=== PATIENT | male | born 1945 | race Caucasian/White ===

== ENCOUNTER 2018-07-25 10:45 | Inpatient (IN) | payer MEDICARE, OTHER ==
[~2018-07-25] VITALS: Ht 180.3 cm; Wt 93.7 kg
[2018-07-25] VITALS (14 sets, daily range): BP systolic 105–162; BP diastolic 61–98
[2018-07-25] MEDS ORDERED: FLUT1AER INH (11:17)
[2018-07-25] MEDS ORDERED: SILO4CAP PO (11:17)
[2018-07-25] MEDS ORDERED: TADA5TAB2 PO (11:17)
[2018-07-25 11:18] LABS: BASOPHILS # (AUTO) 0.2 X10'3 (0-0.2); BASOPHILS % (AUTO) 1.6 % (0-1); EOSINOPHILS # (AUTO) 0.1 X10'3 (0-0.9); EOSINOPHILS % (AUTO) 0.4 % (0-6); HEMATOCRIT 49.5 % (42.0-52.0); LYMPHOCYTES # (AUTO) 1.4 X10'3 (1.1-4.8); LYMPHOCYTES % (AUTO) 9.3 % (21-51); MEAN CORPUSCULAR HEMOGLOBIN 30.2 PG (27.0-31.0); MEAN CORPUSCULAR HGB CONC 34.3 % (33.0-36.5); MEAN PLATELET VOLUME 8.1 FL (7.4-10.4); MONOCYTES # (AUTO) 0.6 X10'3 (0-0.9); MONOCYTES % (AUTO) 4.4 % (2-12); NEUTROPHILS # (AUTO) 12.3 X10'3 (1.8-7.7); NEUTROPHILS % (AUTO) 84.3 % (42-75); PLATELET COUNT 201 X10'3 (140-440); RED BLOOD COUNT 5.63 X10'6 (4.70-6.10); RED CELL DISTRIBUTION WIDTH 12.2 % (11.5-14.5); WHITE BLOOD COUNT 14.6 X10'3 (4.5-11.0)
[2018-07-25] MEDS ORDERED: ASPI-1265 PO (11:18)
[2018-07-25] MEDS ORDERED: ST JOHNS WORT PO (11:18)
[2018-07-25 11:25] LABS: PROTHROMBIN TIME 10.7 SECONDS (9.0-12.0)
[2018-07-25 11:39] LABS: ALANINE AMINOTRANSFERASE 26 U/L (12-78); ALBUMIN 3.8 G/DL (3.4-5.0); ALKALINE PHOSPHATASE 63 IU/L (46-116); ANION GAP 12 (8-16); ASPARTATE AMINO TRANSFERASE 17 U/L (10-37); BILIRUBIN,TOTAL 1.9 MG/DL (0.1-1.0); BLOOD UREA NITROGEN 24 MG/DL (7-18); BUN/CREATININE RATIO 18.3 (5.4-32.0); CHLORIDE 103 MMOL/L (99-107); CREATININE 1.31 MG/DL (0.60-1.10); GLUCOSE 109 MG/DL (70-104); LIPASE 133 U/L (73-393); POTASSIUM 3.7 MMOL/L (3.5-5.1); SODIUM 140 MMOL/L (135-145); TOTAL CARBON DIOXIDE 25.5 MMOL/L (24-32); TOTAL PROTEIN 7.7 G/DL (6.4-8.2); eGFR 53 ML/MIN
[2018-07-25] MEDS ORDERED: normal saline 1000ML IV soln IVB ONE (11:50)
[2018-07-25] MEDS ORDERED: iohexol 300mg/ml 100ml inj. ONE (11:52)
[2018-07-25 12:19] LABS: CLARITY,URINE CLEAR (Clear); COLOR,URINE YELLOW (Yellow); GLUCOSE, URINE NEGATIVE (Neg); KETONES,URINE NEGATIVE (Neg); LEUKOCYTE ESTERASE ,URINE TRACE (Neg); NITRITES, URINE NEGATIVE (Neg); OCCULT BLOOD,URINE MODERATE (Neg); PH,URINE 6.5 (4.8-8.0); PROTEIN,URINE NEGATIVE (Neg); UROBILINOGEN,URINE 0.2 E.U/dL (0.2-1.0)
[2018-07-25 12:27] LABS: UA COLLECTION TYPE URINAL
[2018-07-25 12:29] LABS: BACTERIA,URINE NONE SEEN /HPF (Neg); RBC,URINE 0-2 /HPF (0-2); WBC,URINE 0-4 /HPF (0-4)
[2018-07-25 12:30] LABS: HYALINE CASTS 0-3 /LPF (NEGATIVE); MUCUS STRANDS FEW /LPF (Neg); SQUAMOUS EPITHELIAL CELL,UR FEW /LPF (FEW)
[2018-07-25] MEDS ORDERED: piperacillin/tazo 3.375gm/50ml 50 ML IV ONE (13:15)
[2018-07-25] MEDS ORDERED: fentaNYL/PF 50MCG/1 ML 2ML syringe IV ONE (14:10)
[2018-07-25] MEDS ORDERED: mag hydrox/Alum hydrox/simeth 30ml oral suspension PO PRN (15:15)
[2018-07-25] MEDS ORDERED: acetaminophen 325mg tablet PO PRN ×2 (15:15)
[2018-07-25] MEDS ORDERED: magnesium hydroxide 30ml (MOM) UD suspension PO PRN (15:15)
[2018-07-25] MEDS ORDERED: magnesium 1gm/100ml D5W IVPB 100 ML IV PRN (15:15)
[2018-07-25] MEDS ORDERED: HYDROcodone/acetaminophen 10/325mg tab PO PRN (15:15)
[2018-07-25] MEDS ORDERED: magnesium 4gm in 100ml NS 100 ML IV PRN (15:15)
[2018-07-25] MEDS ORDERED: ondansetron/PF 4mg/2ml inj IV PRN ×2 (15:15→17:05)
[2018-07-25] MEDS ORDERED: magnesium Cl slow-release 64mg tablet PO PRN (15:15)
[2018-07-25] MEDS ORDERED: potassium Cl 20 mEq SR tablet PO PRN ×2 (15:15)
[2018-07-25] MEDS ORDERED: potassium Cl 40MEQ/NS 500ml 500 ML IV PRN ×2 (15:15)
[2018-07-25] MEDS ORDERED: HYDROcodone/acetaminophen 5mg/325mg tablet PO PRN ×3 (15:15→19:10)
[2018-07-25] MEDS ORDERED: HYDROmorphone 1 mg/ml syringe IV PRN ×3 (15:15→17:05)
[2018-07-25] MEDS: normal saline 1000ml 1,000 ML IV SCH (15:47)
[2018-07-25] MEDS ORDERED: piperacillin/tazo 3.375gm/50ml 50 ML IV SCH ×2 (16:00→19:10)
[2018-07-25] MEDS ORDERED: BUPIVAcaine/PF 2.5mg/ml (0.25%) 10ml vial ONE (16:39)
[2018-07-25] MEDS ORDERED: LIDOcaine 1% 30ml preserv. free vial ONE (16:39)
[2018-07-25] MEDS ORDERED: fentaNYL/PF 50MCG/1 ML 2ML syringe IV PRN ×2 (17:05)
[2018-07-25] MEDS ORDERED: ringers solution, lacted 1,000 ML IV SCH (17:05)
[2018-07-25] MEDS ORDERED: fentaNYL/PF 50MCG/1 ML 2ML syringe ONE ×2 (17:13→17:54)
[2018-07-25] MEDS ORDERED: neostigmine methylsulfate 1 MG/ML 10ml vial ONE (17:16)
[2018-07-25] MEDS ORDERED: sevoflurane 250ml liquid IH ONE (17:16)
[2018-07-25] MEDS ORDERED: dexamethasone sod phosphate 4mg/ml inj. ONE (17:54)
[2018-07-25] MEDS ORDERED: glycopyrrolate 0.2mg/ml inj ONE (17:54)
[2018-07-25] MEDS ORDERED: rocuronium 10mg/ml inj IV ONE (17:54)
[2018-07-25] MEDS ORDERED: propofol inj 20 ML IV ONE (17:54)
[2018-07-25] MEDS ORDERED: ondansetron/PF 4mg/2ml inj ONE (17:54)
[2018-07-25] MEDS ORDERED: LIDOcaine 2% (20mg/ml) 5ml vial ONE (17:54)
[2018-07-25] MEDS ORDERED: ePHEDrine 50MG/ML INJ. ONE (18:06)
[2018-07-25] MEDS ORDERED: labetalol 5mg/ml 20ml inj. IV ONE (18:33)
[2018-07-25] MEDS: piperacillin/tazo 3.375gm/50ml 50 ML IV SCH (19:28)
[2018-07-25] MEDS ORDERED: temazepam 15mg capsule PO PRN (21:00)
[2018-07-26] VITALS: BP 108/65
[2018-07-26] MEDS: piperacillin/tazo 3.375gm/50ml 50 ML IV SCH ×2 (01:29→12:00)
[2018-07-26] MEDS: normal saline 1000ml 1,000 ML IV SCH ×2 (03:34→11:14)
[2018-07-26 06:05] LABS: BASOPHILS % (AUTO) 0 % (0-1); EOSINOPHILS % (AUTO) 0 % (0-6); HEMATOCRIT 42.8 % (42.0-52.0); HEMOGLOBIN 14.6 g/dl (14.0-17.9); LYMPHOCYTES # (AUTO) 0.6 X10'3 (1.1-4.8); LYMPHOCYTES % (AUTO) 5.3 % (21-51); MEAN CORPUSCULAR HEMOGLOBIN 30.3 PG (27.0-31.0); MEAN CORPUSCULAR HGB CONC 34.2 % (33.0-36.5); MEAN CORPUSCULAR VOLUME 88.5 FL (78-98); MEAN PLATELET VOLUME 8.5 FL (7.4-10.4); MONOCYTES # (AUTO) 0.3 X10'3 (0-0.9); MONOCYTES % (AUTO) 2.5 % (2-12); NEUTROPHILS # (AUTO) 11.3 X10'3 (1.8-7.7); NEUTROPHILS % (AUTO) 92.2 % (42-75); PLATELET COUNT 174 X10'3 (140-440); RED BLOOD COUNT 4.84 X10'6 (4.70-6.10); RED CELL DISTRIBUTION WIDTH 12.8 % (11.5-14.5); WHITE BLOOD COUNT 12.2 X10'3 (4.5-11.0)
[2018-07-26 06:11] LABS: ALANINE AMINOTRANSFERASE 22 U/L (12-78); ALBUMIN 2.7 G/DL (3.4-5.0); ALBUMIN/GLOBULIN RATIO 0.8 (1.1-1.5); ALKALINE PHOSPHATASE 50 IU/L (46-116); ANION GAP 9 (8-16); BILIRUBIN,TOTAL 1.7 MG/DL (0.1-1.0); BLOOD UREA NITROGEN 24 MG/DL (7-18); BUN/CREATININE RATIO 16.1 (5.4-32.0); CALCIUM 7.9 MG/DL (8.5-10.1); CHLORIDE 105 MMOL/L (99-107); CREATININE 1.49 MG/DL (0.60-1.10); GLUCOSE 190 MG/DL (70-104); MAGNESIUM 1.8 MG/DL (1.5-2.4); SODIUM 139 MMOL/L (135-145); TOTAL CARBON DIOXIDE 24.6 MMOL/L (24-32); TOTAL PROTEIN 6.3 G/DL (6.4-8.2); eGFR 46 ML/MIN
[2018-07-26 06:43] LABS: ASPARTATE AMINO TRANSFERASE 20 U/L (10-37); POTASSIUM 4.5 MMOL/L (3.5-5.1)
[2018-07-26 07:41] VITALS: BP 123/69
[2018-07-26] MEDS ORDERED: aspirin 81mg tab.chew PO SCH (08:00)
[2018-07-26] MEDS ORDERED: K and/or MAG REPLACEMENT MC SCH (08:00)
[2018-07-26 12:00] VITALS: BP 110/62
== END 2018-07-26 13:11 | disposition home or self-care (01) | DRG 854 ==
LOC: ER 10:46 → ED HOLD 15:14 → SUR 3N 19:00
PROVIDERS: ADMIT Family Medicine; ATTEND Family Medicine
PROC: 0WQF0ZZ Repair Abdominal Wall, Open Approach (ICD-10-PCS; 2018-07-25)
PROC: BW211ZZ Computerized Tomography (CT Scan) of Abdomen and Pelvis using Low Osmolar Contrast (ICD-10-PCS; 2018-07-25)
PROC: 0DTJ4ZZ Resection of Appendix, Percutaneous Endoscopic Approach (ICD-10-PCS; principal; 2018-07-25 17:16)
DX: A41.9 Sepsis, unspecified organism (principal); K35.80 Unspecified acute appendicitis; R09.02 Hypoxemia; K42.9 Umbilical hernia without obstruction or gangrene; J44.9 Chronic obstructive pulmonary disease, unspecified; N18.9 Chronic kidney disease, unspecified; N40.0 Benign prostatic hyperplasia without lower urinary tract symptoms; Z88.5 Allergy status to narcotic agent; Z79.899 Other long term (current) drug therapy; Z79.82 Long term (current) use of aspirin; Z87.891 Personal history of nicotine dependence
CPT/HCPCS: 36415; 71045; 74177; 80053; 81001; 83690; 83735; 85025; 85610; 87070; 87088; 88304; 96365; 99285; A7000; J1100; J1170; J2001; J2405; J2543; J2704; J2710; J3010; J3490; J7030; J7120; Q9967

== ENCOUNTER 2018-08-13 11:46 | Inpatient (IN) | payer MEDICARE, OTHER ==
[~2018-08-13] VITALS: Ht 180.3 cm; Wt 92.2 kg
[~2018-08-13 11:46] MED LIST: ASPI-1265 PO; FLUT1AER INH; SILO4CAP PO; ST JOHNS WORT PO; TADA5TAB2 PO
[2018-08-13] MEDS ORDERED: enoxaparin 100mg/ml syringe SUBCUT ONE (12:00)
[2018-08-13] MEDS ORDERED: levoFLOXACIN-Levaquin 750MG/D5 150 ML IV ONE (12:15)
[2018-08-13] MEDS ORDERED: enoxaparin 60mg/0.6ml syringe SUBCUT ONE (12:15)
[2018-08-13] MEDS ORDERED: enoxaparin 30mg/0.3ml syringe SUBCUT ONE (12:15)
[2018-08-13 12:25] LABS: BASOPHILS % (AUTO) 0.6 % (0-1); EOSINOPHILS # (AUTO) 0.1 X10'3 (0-0.9); EOSINOPHILS % (AUTO) 1.6 % (0-6); HEMATOCRIT 47.8 % (42.0-52.0); LYMPHOCYTES # (AUTO) 1.2 X10'3 (1.1-4.8); LYMPHOCYTES % (AUTO) 14.7 % (21-51); MEAN CORPUSCULAR HEMOGLOBIN 29.4 PG (27.0-31.0); MEAN CORPUSCULAR HGB CONC 33.5 % (33.0-36.5); MEAN CORPUSCULAR VOLUME 87.7 FL (78-98); MEAN PLATELET VOLUME 7.5 FL (7.4-10.4); MONOCYTES # (AUTO) 0.8 X10'3 (0-0.9); MONOCYTES % (AUTO) 9.8 % (2-12); NEUTROPHILS # (AUTO) 5.8 X10'3 (1.8-7.7); NEUTROPHILS % (AUTO) 73.3 % (42-75); PLATELET COUNT 286 X10'3 (140-440); RED BLOOD COUNT 5.45 X10'6 (4.70-6.10); RED CELL DISTRIBUTION WIDTH 12.8 % (11.5-14.5); WHITE BLOOD COUNT 7.9 X10'3 (4.5-11.0)
[2018-08-13 13:02] LABS: ALANINE AMINOTRANSFERASE 38 U/L (12-78); ALBUMIN 3.1 G/DL (3.4-5.0); ALBUMIN/GLOBULIN RATIO 0.6 (1.1-1.5); ALKALINE PHOSPHATASE 76 IU/L (46-116); ANION GAP 15 (8-16); ASPARTATE AMINO TRANSFERASE 30 U/L (10-37); BILIRUBIN,TOTAL 0.9 MG/DL (0.1-1.0); BLOOD UREA NITROGEN 21 MG/DL (7-18); BUN/CREATININE RATIO 15.7 (5.4-32.0); CHLORIDE 99 MMOL/L (99-107); CREATININE 1.34 MG/DL (0.60-1.10); GLUCOSE 101 MG/DL (70-104); POTASSIUM 3.9 MMOL/L (3.5-5.1); SODIUM 137 MMOL/L (135-145); TOTAL CARBON DIOXIDE 23.4 MMOL/L (24-32); TOTAL PROTEIN 7.9 G/DL (6.4-8.2); eGFR 52 ML/MIN
[2018-08-13] MEDS: K and/or MAG REPLACEMENT MC SCH (14:50)
[2018-08-13] MEDS ORDERED: ondansetron/PF 4mg/2ml inj IV PRN (14:50)
[2018-08-13] MEDS ORDERED: ipratropium/albuterol 3ml nebule NEB PRN (14:50)
[2018-08-13] MEDS ORDERED: magnesium 1gm/100ml D5W IVPB 100 ML IV PRN (14:50)
[2018-08-13] MEDS ORDERED: potassium Cl 40MEQ/NS 500ml 500 ML IV PRN ×2 (14:50)
[2018-08-13] MEDS ORDERED: magnesium hydroxide 30ml (MOM) UD suspension PO PRN (14:50)
[2018-08-13] MEDS ORDERED: magnesium Cl slow-release 64mg tablet PO PRN (14:50)
[2018-08-13] MEDS ORDERED: acetaminophen 325mg tablet PO PRN ×2 (14:50)
[2018-08-13] MEDS ORDERED: mag hydrox/Alum hydrox/simeth 30ml oral suspension PO PRN (14:50)
[2018-08-13] MEDS ORDERED: diphenhydrAMINE 25mg capsule PO PRN (14:50)
[2018-08-13] MEDS ORDERED: potassium Cl 20 mEq SR tablet PO PRN ×2 (14:50)
[2018-08-13] MEDS ORDERED: magnesium 4gm in 100ml NS 100 ML IV PRN (14:50)
[2018-08-13 15:45] LABS: CLARITY,URINE SLIGHTLY CLOUDY (Clear); COLOR,URINE YELLOW (Yellow); GLUCOSE, URINE NEGATIVE (Neg); KETONES,URINE 15 mg/dl (Neg); LEUKOCYTE ESTERASE ,URINE NEGATIVE (Neg); NITRITES, URINE NEGATIVE (Neg); OCCULT BLOOD,URINE TRACE-INTACT (Neg); PROTEIN,URINE NEGATIVE (Neg); UROBILINOGEN,URINE 0.2 E.U/dL (0.2-1.0)
[2018-08-13 15:51] LABS: UA COLLECTION TYPE CLN CATCH MIDSTREAM
[2018-08-13 15:52] LABS: MUCUS STRANDS FEW /LPF (Neg); SQUAMOUS EPITHELIAL CELL,UR NONE SEEN /LPF (FEW)
[2018-08-13 15:54] LABS: RBC,URINE 0-2 /HPF (0-2)
[2018-08-13 15:55] LABS: BACTERIA,URINE FEW /HPF (Neg)
[2018-08-13 16:50] VITALS: BP 147/88
[2018-08-13] MEDS: normal saline 1000ml 1,000 ML IV SCH (17:03)
[2018-08-13] MEDS: enoxaparin 60mg/0.6ml syringe SUBCUT SCH (19:59)
[2018-08-13 20:00] VITALS: BP 129/79
[2018-08-13] MEDS: enoxaparin 30mg/0.3ml syringe SUBCUT SCH (20:00)
[2018-08-14] VITALS: BP 123/72
[2018-08-14] MEDS: normal saline 1000ml 1,000 ML IV SCH (01:28)
[2018-08-14 05:35] LABS: BASOPHILS % (AUTO) 0.7 % (0-1); EOSINOPHILS # (AUTO) 0.2 X10'3 (0-0.9); EOSINOPHILS % (AUTO) 3.2 % (0-6); HEMOGLOBIN 13.8 g/dl (14.0-17.9); LYMPHOCYTES # (AUTO) 1.2 X10'3 (1.1-4.8); LYMPHOCYTES % (AUTO) 20.3 % (21-51); MEAN CORPUSCULAR HEMOGLOBIN 29.5 PG (27.0-31.0); MEAN CORPUSCULAR HGB CONC 33.6 % (33.0-36.5); MEAN CORPUSCULAR VOLUME 87.7 FL (78-98); MEAN PLATELET VOLUME 7.9 FL (7.4-10.4); MONOCYTES # (AUTO) 0.7 X10'3 (0-0.9); MONOCYTES % (AUTO) 11.6 % (2-12); NEUTROPHILS # (AUTO) 3.8 X10'3 (1.8-7.7); NEUTROPHILS % (AUTO) 64.2 % (42-75); PLATELET COUNT 271 X10'3 (140-440); RED BLOOD COUNT 4.67 X10'6 (4.70-6.10); RED CELL DISTRIBUTION WIDTH 12.9 % (11.5-14.5); WHITE BLOOD COUNT 5.9 X10'3 (4.5-11.0)
[2018-08-14 05:54] LABS: ALANINE AMINOTRANSFERASE 30 U/L (12-78); ALBUMIN 2.5 G/DL (3.4-5.0); ALBUMIN/GLOBULIN RATIO 0.6 (1.1-1.5); ALKALINE PHOSPHATASE 61 IU/L (46-116); ANION GAP 9 (8-16); ASPARTATE AMINO TRANSFERASE 27 U/L (10-37); BILIRUBIN,TOTAL 0.4 MG/DL (0.1-1.0); BLOOD UREA NITROGEN 25 MG/DL (7-18); BUN/CREATININE RATIO 19.4 (5.4-32.0); CALCIUM 8.5 MG/DL (8.5-10.1); CHLORIDE 106 MMOL/L (99-107); CREATININE 1.29 MG/DL (0.60-1.10); GLUCOSE 102 MG/DL (70-104); MAGNESIUM 1.9 MG/DL (1.5-2.4); PHOSPHORUS 3.7 MG/DL (2.3-4.5); POTASSIUM 3.5 MMOL/L (3.5-5.1); SODIUM 140 MMOL/L (135-145); TOTAL CARBON DIOXIDE 25.2 MMOL/L (24-32); TOTAL PROTEIN 6.5 G/DL (6.4-8.2); eGFR 54 ML/MIN
[2018-08-14 07:00] VITALS: BP 124/68
[2018-08-14 07:05] VITALS: BP 124/68
[2018-08-14] MEDS ORDERED: levoFLOXACIN-Levaquin 750MG/D5 150 ML IV SCH (08:00)
[2018-08-14] MEDS: K and/or MAG REPLACEMENT MC SCH (08:00)
[2018-08-14] MEDS: enoxaparin 60mg/0.6ml syringe SUBCUT SCH (08:32)
[2018-08-14] MEDS: enoxaparin 30mg/0.3ml syringe SUBCUT SCH (08:33)
[2018-08-14 11:23] VITALS: BP 133/68
[2018-08-14] MEDS ORDERED: traMADol 50MG tablet PO PRN (13:10)
[2018-08-14] MEDS ORDERED: APIX5TAB3 PO (14:14)
[2018-08-14] MEDS ORDERED: LEVO750T46 PO (14:15)
[2018-08-14] MEDS ORDERED: ALBU8.5H8 IH (14:18)
[2018-08-14] MEDS ORDERED: lactobacillus rhamnosus 10,000 MMU CELLS/CAPSULE PO SCH (20:00)
== END 2018-08-14 15:26 | disposition home or self-care (01) | DRG 175 ==
LOC: ER 11:46 → ED HOLD 14:50 → SUR 3N 16:46
PROVIDERS: ADMIT Family Medicine; ATTEND Family Medicine
DX: I26.99 Other pulmonary embolism without acute cor pulmonale (principal); J18.1 Lobar pneumonia, unspecified organism; R04.2 Hemoptysis; J45.909 Unspecified asthma, uncomplicated; N18.9 Chronic kidney disease, unspecified; N40.0 Benign prostatic hyperplasia without lower urinary tract symptoms; Z90.49 Acquired absence of other specified parts of digestive tract; Z88.5 Allergy status to narcotic agent; Z79.899 Other long term (current) drug therapy; Z79.01 Long term (current) use of anticoagulants; Z80.3 Family history of malignant neoplasm of breast
CPT/HCPCS: 36415; 71045; 80053; 81001; 83605; 83735; 84100; 84145; 84484; 85025; 87040; 87070; 87088; 93005; 93306; 93970; 94760; 96372; 96374; 99285; G0378; J1650; J1956; J7030

== ENCOUNTER 2018-11-08 13:00 | Inpatient (IN) | payer MEDICARE, OTHER | END 2018-11-14 15:00 | disposition home or self-care (01) | LOC: MED 3N 13:00 → ICU 2S 11-10 10:17 → MED 3N 11-12 16:53 | PROC: 02100A3 Bypass Coronary Artery, One Artery from Coronary Artery with Autologous Arterial Tissue, Open Approach (ICD-10-PCS; principal; 2018-11-10 08:00) | PROC: 0211099 Bypass Coronary Artery, Two Arteries from Left Internal Mammary with Autologous Venous Tissue, Open Approach (ICD-10-PCS; 2018-11-10 08:00) | PROC: 5A1935Z Respiratory Ventilation, Less than 24 Consecutive Hours (ICD-10-PCS; 2018-11-10 08:00) | DX: I25.10 Atherosclerotic heart disease of native coronary artery without angina pectoris (principal); J44.9 Chronic obstructive pulmonary disease, unspecified; G47.36 Sleep related hypoventilation in conditions classified elsewhere ==

== ENCOUNTER 2021-03-17 19:15 | Emergency (ER) | payer MEDICARE, OTHER ==
[~2021-03-17] VITALS: Ht 180.3 cm; Wt 91.3 kg
[~2021-03-17 19:15] MED LIST changes: +ALBU8HFA IH; +AMLO5TAB16 PO; +APIX5TAB3 PO; -ASPI-1265 PO; -FLUT1AER INH; +FLUT1BLS3 INH; -SILO4CAP PO; +SILO8CAP2 PO; -ST JOHNS WORT PO; +TADA5TAB13 PO; -TADA5TAB2 PO
[2021-03-17 20:15] LABS: BASOPHILS # (AUTO) 0.1 X10'3 (0-0.2); BASOPHILS % (AUTO) 0.6 % (0-1); EOSINOPHILS # (AUTO) 0.1 X10'3 (0-0.9); EOSINOPHILS % (AUTO) 0.9 % (0-6); HEMATOCRIT 46.8 % (42.0-52.0); HEMOGLOBIN 16.1 g/dl (14.0-17.9); LYMPHOCYTES # (AUTO) 0.9 X10'3 (1.1-4.8); LYMPHOCYTES % (AUTO) 10.9 % (21-51); MEAN CORPUSCULAR HEMOGLOBIN 29.8 PG (27.0-31.0); MEAN CORPUSCULAR HGB CONC 34.3 g/dL (33.0-36.5); MEAN CORPUSCULAR VOLUME 86.9 FL (78-98); MEAN PLATELET VOLUME 7.4 FL (7.4-10.4); MONOCYTES # (AUTO) 0.5 X10'3 (0-0.9); MONOCYTES % (AUTO) 5.8 % (2-12); NEUTROPHILS # (AUTO) 6.6 X10'3 (1.8-7.7); NEUTROPHILS % (AUTO) 81.8 % (42-75); PLATELET COUNT 279 X10'3 (140-440); RED BLOOD COUNT 5.39 X10'6 (4.70-6.10)
[2021-03-17 20:31] LABS: ALANINE AMINOTRANSFERASE 22 U/L (12-78); ALBUMIN 3.5 G/DL (3.4-5.0); ALBUMIN/GLOBULIN RATIO 0.9 (1.1-1.5); ALKALINE PHOSPHATASE 67 IU/L (46-116); ANION GAP 12 (8-16); ASPARTATE AMINO TRANSFERASE 17 U/L (10-37); BILIRUBIN,TOTAL 0.4 MG/DL (0.1-1.0); BLOOD UREA NITROGEN 15 MG/DL (7-18); BUN/CREATININE RATIO 9.7 (5.4-32.0); CALCIUM 9.5 MG/DL (8.5-10.1); CHLORIDE 108 MMOL/L (99-107); CREATININE 1.55 MG/DL (0.60-1.10); GLUCOSE 127 MG/DL (70-104); LIPASE 82 U/L (73-393); POTASSIUM 3.9 MMOL/L (3.5-5.1); SODIUM 144 MMOL/L (135-145); TOTAL CARBON DIOXIDE 24.2 MMOL/L (24-32); TOTAL PROTEIN 7.5 G/DL (6.4-8.2); TROPONIN I < 0.04 NG/ML (0.0-0.05); eGFR 44 ML/MIN
[2021-03-17] MEDS ORDERED: ondansetron/PF 4mg/2ml inj IV ONE (23:05)
[2021-03-17] MEDS ORDERED: fentaNYL/PF 50MCG/1 ML 2ML syringe IV ONE (23:20)
[2021-03-17] MEDS ORDERED: iohexol 350MG/ML 100ml bottle IV ONE (23:35)
--- NOTE | 2021-03-18 00:02 | NUR ---
CT ARRIVED AND TOOK PATIENT TO CT. 0.5 ML OF FENTYNAL GIVEN. FOR PAIN 07/24 PT STATED HE DIDN'T WANT A BIG DOSE OF MEDICATION.
[2021-03-18] MEDS ORDERED: HYDR-3972 PO (02:12)
[2021-03-18 02:18] LABS: CLARITY,URINE CLEAR (Clear); COLOR,URINE YELLOW (Yellow); GLUCOSE, URINE NEGATIVE (Neg); KETONES,URINE NEGATIVE (Neg); LEUKOCYTE ESTERASE ,URINE NEGATIVE (Neg); NITRITES, URINE NEGATIVE (Neg); OCCULT BLOOD,URINE LARGE (Neg); PH,URINE 5.5 (4.8-8.0); PROTEIN,URINE NEGATIVE (Neg); UROBILINOGEN,URINE 0.2 E.U/dL (0.2-1.0)
[2021-03-18 02:19] LABS: UA COLLECTION TYPE URINAL
[2021-03-18 02:24] LABS: BACTERIA,URINE NONE SEEN /HPF (Neg); MUCUS STRANDS FEW /LPF (Neg); SQUAMOUS EPITHELIAL CELL,UR NONE SEEN /LPF (FEW); WBC,URINE 0-4 /HPF (0-4)
[2021-03-18 04:21] VITALS: BP 140/90
== END 2021-03-18 05:29 | disposition home or self-care (01) ==
LOC: ER 19:15
DX: R10.31 Right lower quadrant pain (principal); I25.10 Atherosclerotic heart disease of native coronary artery without angina pectoris; J45.909 Unspecified asthma, uncomplicated; N18.9 Chronic kidney disease, unspecified; Z87.01 Personal history of pneumonia (recurrent); Z86.711 Personal history of pulmonary embolism; Z90.89 Acquired absence of other organs; Z88.5 Allergy status to narcotic agent; Z79.899 Other long term (current) drug therapy
CPT/HCPCS: 36415; 71045; 71275; 74174; 80053; 81001; 83690; 83880; 84484; 85025; 93005; 96374; 96375; 99285; J2405; J3010; Q9967

== ENCOUNTER 2021-07-28 16:27 | Inpatient (IN) | payer MEDICARE, OTHER ==
[~2021-07-28] VITALS: Ht 180.3 cm; Wt 91.7 kg
[~2021-07-28 16:27] MED LIST changes: +TALC 4 GM VIAL ***intrapleural administration only IX ONE; +sterile Talc 2 GM powder vial ONE
[2021-07-28] MEDS ORDERED: dexamethasone 4mg tablet PO ONE (17:10)
[2021-07-28] MEDS ORDERED: DEXAMETHASONE 6 MG TABLET PO ONE (17:15)
[2021-07-28] MEDS ORDERED: iohexol 350MG/ML 100ml bottle IV ONE (17:19)
[2021-07-28 17:20] LABS: BASOPHILS % (AUTO) 0.1 % (0-1); EOSINOPHILS % (AUTO) 0 % (0-6); HEMATOCRIT 51.3 % (42.0-52.0); HEMOGLOBIN 17.4 g/dl (14.0-17.9); LYMPHOCYTES # (AUTO) 0.4 X10'3 (1.1-4.8); LYMPHOCYTES % (AUTO) 3.9 % (21-51); MEAN CORPUSCULAR HEMOGLOBIN 29.3 PG (27.0-31.0); MEAN CORPUSCULAR HGB CONC 33.9 g/dL (33.0-36.5); MEAN CORPUSCULAR VOLUME 86.5 FL (78-98); MEAN PLATELET VOLUME 8.2 FL (7.4-10.4); MONOCYTES # (AUTO) 0.4 X10'3 (0-0.9); NEUTROPHILS # (AUTO) 9.4 X10'3 (1.8-7.7); PLATELET COUNT 190 X10'3 (140-440); RED BLOOD COUNT 5.93 X10'6 (4.70-6.10); RED CELL DISTRIBUTION WIDTH 13.5 % (11.5-14.5); WHITE BLOOD COUNT 10.3 X10'3 (4.5-11.0)
[2021-07-28 17:35] LABS: ALANINE AMINOTRANSFERASE 67 U/L (12-78); ALBUMIN 3.3 G/DL (3.4-5.0); ALBUMIN/GLOBULIN RATIO 0.7 (1.1-1.5); ALKALINE PHOSPHATASE 52 IU/L (46-116); ANION GAP 13 (8-16); ASPARTATE AMINO TRANSFERASE 66 U/L (10-37); BILIRUBIN,TOTAL 0.9 MG/DL (0.1-1.0); BLOOD UREA NITROGEN 36 MG/DL (7-18); BUN/CREATININE RATIO 22.2 (5.4-32.0); CALCIUM 8.8 MG/DL (8.5-10.1); CHLORIDE 101 MMOL/L (99-107); CREATININE 1.62 MG/DL (0.60-1.10); GLUCOSE 147 MG/DL (70-104); POTASSIUM 3.9 MMOL/L (3.5-5.1); SODIUM 140 MMOL/L (135-145); TOTAL CARBON DIOXIDE 25.6 MMOL/L (24-32); TOTAL PROTEIN 8.1 G/DL (6.4-8.2); eGFR 42 ML/MIN
--- NOTE | 2021-07-28 18:48 | NUR ---
SBAR THE NIGHT NURSE TO PAGE RT FOR O2 FLOW CHANGES FROM NON REBREATHER TO SALTER O2 OR HIGH FLOW ALSO INFORMED THAT PT HAS COPD AND IS COVID POSITIVE.
[2021-07-28 18:56] LABS: C-REACTIVE PROTEIN 3.46 MG/DL (0.0-0.5); LACTATE DEHYDROGENASE 537 U/L (85-227)
[2021-07-28] MEDS ORDERED: midazolam 1 mg/ML 2ml injection IV ONE (19:10)
[2021-07-28] MEDS ORDERED: fentaNYL/PF 50MCG/1 ML 2ML syringe ONE (19:19)
[2021-07-28] MEDS ORDERED: fentaNYL/PF 50MCG/1 ML 2ML syringe IV ONE (19:20)
--- NOTE | 2021-07-28 19:31 | NUR ---
Time out at 1930, Dr. Hunter
--- NOTE | 2021-07-28 19:33 | NUR ---
Thoravent inserted by Dr. Hunter first attempt. Chest xray single view will be ordered per verbal from Dr. Hunter.
[2021-07-28] MEDS ORDERED: REMDESIVIR INJ 200 MG in normal saline 100ml IV soln 60 ML IV ONE (20:00)
[2021-07-28] MEDS ORDERED: ondansetron/PF 4mg/2ml inj IV PRN (20:25)
[2021-07-28] MEDS ORDERED: potassium Cl 20 mEq SR tablet PO PRN ×2 (20:25)
[2021-07-28] MEDS ORDERED: magnesium hydroxide 30ml (MOM) UD suspension PO PRN (20:25)
[2021-07-28] MEDS ORDERED: acetaminophen 325mg tablet PO PRN (20:25)
[2021-07-28] MEDS ORDERED: potassium Cl 40MEQ/1/2NS 520ml 520 ML IV PRN ×2 (20:25)
[2021-07-28] MEDS ORDERED: HYDROcodone/acetaminophen 5mg/325mg tablet PO PRN (20:25)
[2021-07-28] MEDS ORDERED: mag hydrox/Alum hydrox/simeth 30ml oral suspension PO PRN (20:25)
[2021-07-28] MEDS ORDERED: APIX5TAB3 PO (20:38)
[2021-07-28] MEDS ORDERED: REMDESIVIR 100 MG in NS 100ml IVPB IV SCH (21:00)
[2021-07-28 22:00] VITALS: BP 118/77
[2021-07-28] MEDS: metoprolol tartrate 12.5mg (1/2 tablet) PO SCH (22:37)
--- NOTE | 2021-07-28 23:00 | NUR ---
report recieved from ER - per RN the thoravent dose not have to be connected to suction. tubing connected to thoravent is clamped off. pt c/o pain only at insertion point. sats stable at 95% on 15L NRB
[2021-07-29] MEDS: apixaban 5mg tablet PO SCH ×3 (01:10→19:52)
[2021-07-29 02:00] VITALS: BP 106/73
--- NOTE | 2021-07-29 04:00 | NUR ---
desat - placed NRB mask w/o oxygen and sats came up to 99% on 15L HF. see note. pt had another small black tarry stool. Addendum: 07/29/21 at 0401 by Stanley Rivas RN omit - wrong patient
--- NOTE | 2021-07-29 04:02 | NUR ---
stood to void. sats stable, resting w/o distress
[2021-07-29 06:07] LABS: BASOPHILS % (AUTO) 0 % (0-1); EOSINOPHILS % (AUTO) 0 % (0-6); HEMATOCRIT 42.8 % (42.0-52.0); HEMOGLOBIN 15.1 g/dl (14.0-17.9); LYMPHOCYTES # (AUTO) 0.4 X10'3 (1.1-4.8); LYMPHOCYTES % (AUTO) 5.1 % (21-51); MEAN CORPUSCULAR HEMOGLOBIN 29.7 PG (27.0-31.0); MEAN CORPUSCULAR HGB CONC 35.2 g/dL (33.0-36.5); MEAN CORPUSCULAR VOLUME 84.4 FL (78-98); MEAN PLATELET VOLUME 8.3 FL (7.4-10.4); MONOCYTES # (AUTO) 0.3 X10'3 (0-0.9); MONOCYTES % (AUTO) 3.5 % (2-12); NEUTROPHILS # (AUTO) 7.3 X10'3 (1.8-7.7); NEUTROPHILS % (AUTO) 91.4 % (42-75); PLATELET COUNT 174 X10'3 (140-440); RED BLOOD COUNT 5.07 X10'6 (4.70-6.10); RED CELL DISTRIBUTION WIDTH 13.5 % (11.5-14.5)
--- NOTE | 2021-07-29 06:16 | NUR ---
ER unable to find bag of medciations that patient states he brought with him in the ambulence. ER is still looking and talking to ambulence drivers as well. Pharmacy does not have med either.
[2021-07-29 06:37] LABS: ALANINE AMINOTRANSFERASE 63 U/L (12-78); ALBUMIN 2.5 G/DL (3.4-5.0); ALBUMIN/GLOBULIN RATIO 0.6 (1.1-1.5); ALKALINE PHOSPHATASE 43 IU/L (46-116); ANION GAP 14 (8-16); ASPARTATE AMINO TRANSFERASE 50 U/L (10-37); BILIRUBIN,TOTAL 0.6 MG/DL (0.1-1.0); BLOOD UREA NITROGEN 40 MG/DL (7-18); BUN/CREATININE RATIO 28.2 (5.4-32.0); CALCIUM 8.1 MG/DL (8.5-10.1); CHLORIDE 100 MMOL/L (99-107); CREATININE 1.42 MG/DL (0.60-1.10); GLUCOSE 190 MG/DL (70-104); POTASSIUM 4.4 MMOL/L (3.5-5.1); SODIUM 138 MMOL/L (135-145); TOTAL CARBON DIOXIDE 23.6 MMOL/L (24-32); TOTAL PROTEIN 6.7 G/DL (6.4-8.2); eGFR 48 ML/MIN
[2021-07-29] MEDS: HYDROcodone/acetaminophen 10/325mg tab PO PRN (06:47)
[2021-07-29] MEDS: K and/or MAG REPLACEMENT MC SCH ×2 (07:09→19:26)
[2021-07-29] MEDS: metoprolol tartrate 12.5mg (1/2 tablet) PO SCH ×2 (08:00→20:00)
[2021-07-29] MEDS: VILANTEROL IH SCH (08:00)
[2021-07-29] MEDS ORDERED: apixaban 5mg tablet PO SCH ×2 (08:00)
[2021-07-29] MEDS: amLODIPine 5mg tablet PO SCH (08:00)
[2021-07-29] MEDS: FLUTICASONE IH SCH (08:00)
[2021-07-29] MEDS ORDERED: amLODIPine 5mg tablet PO SCH (08:00)
[2021-07-29 08:16] VITALS: BP 97/60
[2021-07-29] MEDS: dexamethasone inj 6 MG in normal saline 50ml IV soln 50 ML IV SCH ×2 (08:22→19:52)
[2021-07-29] MEDS: docusate sod 100mg capsule PO SCH ×2 (08:23→19:52)
--- NOTE | 2021-07-29 09:38 | NUR ---
Malnutrition consult: Pt reports 14-23 lb wt loss with decreased appetite per malnutrition risk screen with RN. Current scaled wt is +5 kg from scaled wt hx in EMR from March of this year, which is stable from scaled wt hx in October 2019. Pt currently on a heart healthy diet, pending documentation of PO intake. Pt with no documented significant decrease in muscle strength or edema. Pt appears well developed well nourished per ED report. Pt currently lacks a minimum of two criteria for malnutrition. Will continue to follow closely and monitor qualifying criteria. Addendum: 07/29/21 at [address] Amended: Links added.
[2021-07-29 10:00] VITALS: BP 100/65
[2021-07-29 14:00] VITALS: BP 116/74
--- NOTE | 2021-07-29 15:02 | NUR ---
Continued to look for bag of medications that pt said he came in to ER with and now he can't find them. No such items seen in patient's room when checked. Notified [facility] pharmacy who said they do not have patient's medications stored in pharmacy. Notified ER who said they have not found them but will check in with the ER charge nurse.
[2021-07-29 18:00] VITALS: BP 111/74
--- NOTE | 2021-07-29 18:45 | NUR ---
Patient in room ORTHO 4014. I have received report from Adam CARLSON and had the opportunity to ask questions and assume patient care.
[2021-07-29] MEDS: REMDESIVIR 100 MG in NS 100ml IVPB IV SCH (21:18)
[2021-07-29 22:00] VITALS: BP 109/73
[2021-07-30 02:00] VITALS: BP 122/79
--- NOTE | 2021-07-30 06:13 | NUR ---
Problems reprioritized. Patient report given, questions answered & plan of care reviewed with Adam CARLSON.
[2021-07-30] MEDS: FLUTICASONE IH SCH (07:44)
[2021-07-30] MEDS: VILANTEROL IH SCH (07:44)
[2021-07-30] MEDS: dexamethasone inj 6 MG in normal saline 50ml IV soln 50 ML IV SCH ×2 (07:49→20:20)
[2021-07-30] MEDS: apixaban 5mg tablet PO SCH ×2 (07:49→20:08)
[2021-07-30] MEDS: metoprolol tartrate 12.5mg (1/2 tablet) PO SCH ×2 (07:49→20:21)
[2021-07-30] MEDS: amLODIPine 5mg tablet PO SCH (07:51)
[2021-07-30] MEDS: docusate sod 100mg capsule PO SCH ×2 (07:51→20:08)
[2021-07-30 07:52] VITALS: BP 125/79
[2021-07-30] MEDS: K and/or MAG REPLACEMENT MC SCH ×2 (08:00→20:00)
[2021-07-30 08:07] LABS: BASOPHILS % (AUTO) 0.2 % (0-1); EOSINOPHILS % (AUTO) 0 % (0-6); HEMATOCRIT 46.7 % (42.0-52.0); HEMOGLOBIN 16.1 g/dl (14.0-17.9); LYMPHOCYTES # (AUTO) 0.4 X10'3 (1.1-4.8); LYMPHOCYTES % (AUTO) 4.9 % (21-51); MEAN CORPUSCULAR HEMOGLOBIN 29.4 PG (27.0-31.0); MEAN CORPUSCULAR HGB CONC 34.4 g/dL (33.0-36.5); MEAN CORPUSCULAR VOLUME 85.4 FL (78-98); MEAN PLATELET VOLUME 8.2 FL (7.4-10.4); MONOCYTES # (AUTO) 0.4 X10'3 (0-0.9); MONOCYTES % (AUTO) 4.4 % (2-12); NEUTROPHILS # (AUTO) 7.8 X10'3 (1.8-7.7); NEUTROPHILS % (AUTO) 90.5 % (42-75); PLATELET COUNT 242 X10'3 (140-440); RED BLOOD COUNT 5.47 X10'6 (4.70-6.10); RED CELL DISTRIBUTION WIDTH 13.7 % (11.5-14.5); WHITE BLOOD COUNT 8.6 X10'3 (4.5-11.0)
[2021-07-30 08:31] LABS: ALBUMIN 2.5 G/DL (3.4-5.0); ALBUMIN/GLOBULIN RATIO 0.6 (1.1-1.5); ANION GAP 11 (8-16); ASPARTATE AMINO TRANSFERASE 37 U/L (10-37); BILIRUBIN,TOTAL 0.7 MG/DL (0.1-1.0); BLOOD UREA NITROGEN 35 MG/DL (7-18); BUN/CREATININE RATIO 27.8 (5.4-32.0); CALCIUM 8.4 MG/DL (8.5-10.1); CHLORIDE 105 MMOL/L (99-107); CREATININE 1.26 MG/DL (0.60-1.10); GLUCOSE 163 MG/DL (70-104); POTASSIUM 4.5 MMOL/L (3.5-5.1); SODIUM 142 MMOL/L (135-145); TOTAL CARBON DIOXIDE 26.1 MMOL/L (24-32); eGFR 55 ML/MIN
[2021-07-30 08:32] LABS: ALANINE AMINOTRANSFERASE 47 U/L (12-78); ALKALINE PHOSPHATASE 51 IU/L (46-116)
--- NOTE | 2021-07-30 10:00 | NUR ---
Pt received phone elliott from his spouse who said his medication bag that was missing was found on the front porch of their home. Pt was relieved that his medication bag was found.
[2021-07-30 16:00] VITALS: BP 119/74
--- NOTE | 2021-07-30 18:20 | NUR ---
Patient in room ORTHO 4014. I have received report from Adam CARLSON and had the opportunity to ask questions and assume patient care. Addendum: 07/30/21 at 1848 by Irina Monte RN Amended: Links added.
[2021-07-30 19:00] VITALS: BP 144/79
[2021-07-30 20:00] VITALS: BP 121/71
[2021-07-30] MEDS: HYDROcodone/acetaminophen 10/325mg tab PO PRN (20:20)
[2021-07-30] MEDS: REMDESIVIR 100 MG in NS 100ml IVPB IV SCH (20:58)
[2021-07-30] MEDS: albuterol 60 PUFF/8GM Inhaler IH PRN (21:02)
[2021-07-30 22:00] VITALS: BP 121/71
[2021-07-31 02:00] VITALS: BP 117/79
[2021-07-31 06:00] VITALS: BP 125/75
--- NOTE | 2021-07-31 06:30 | NUR ---
Problems reprioritized. Patient report given, questions answered & plan of care reviewed with Vanna CARLSON. Addendum: 07/31/21 at 0657 by Irina Monte RN Amended: Links added.
--- NOTE | 2021-07-31 06:30 | NUR ---
Patient in room ORTHO 4014A. I have received report from ALDO TROY and had the opportunity to ask questions and assume patient care.
[2021-07-31] MEDS: K and/or MAG REPLACEMENT MC SCH ×2 (07:20→19:52)
[2021-07-31] MEDS: docusate sod 100mg capsule PO SCH ×2 (07:25→19:52)
[2021-07-31] MEDS: dexamethasone inj 6 MG in normal saline 50ml IV soln 50 ML IV SCH ×2 (07:25→19:52)
[2021-07-31] MEDS: apixaban 5mg tablet PO SCH ×2 (07:27→19:52)
[2021-07-31] MEDS: amLODIPine 5mg tablet PO SCH (07:27)
[2021-07-31] MEDS: metoprolol tartrate 12.5mg (1/2 tablet) PO SCH ×2 (07:27→19:52)
[2021-07-31] MEDS: FLUTICASONE IH SCH (07:38)
[2021-07-31] MEDS: VILANTEROL IH SCH (07:38)
[2021-07-31 07:44] LABS: BASOPHILS % (AUTO) 0.1 % (0-1); EOSINOPHILS % (AUTO) 0.1 % (0-6); HEMATOCRIT 47.8 % (42.0-52.0); HEMOGLOBIN 16.4 g/dl (14.0-17.9); LYMPHOCYTES # (AUTO) 0.5 X10'3 (1.1-4.8); LYMPHOCYTES % (AUTO) 5.2 % (21-51); MEAN CORPUSCULAR HEMOGLOBIN 29.5 PG (27.0-31.0); MEAN CORPUSCULAR HGB CONC 34.2 g/dL (33.0-36.5); MEAN CORPUSCULAR VOLUME 86.2 FL (78-98); MEAN PLATELET VOLUME 7.9 FL (7.4-10.4); MONOCYTES # (AUTO) 0.5 X10'3 (0-0.9); MONOCYTES % (AUTO) 4.9 % (2-12); NEUTROPHILS # (AUTO) 9.5 X10'3 (1.8-7.7); NEUTROPHILS % (AUTO) 89.7 % (42-75); PLATELET COUNT 319 X10'3 (140-440); RED BLOOD COUNT 5.55 X10'6 (4.70-6.10); RED CELL DISTRIBUTION WIDTH 13.8 % (11.5-14.5); WHITE BLOOD COUNT 10.6 X10'3 (4.5-11.0)
[2021-07-31 07:55] LABS: ALANINE AMINOTRANSFERASE 45 U/L (12-78); ALBUMIN 2.6 G/DL (3.4-5.0); ALBUMIN/GLOBULIN RATIO 0.6 (1.1-1.5); ALKALINE PHOSPHATASE 59 IU/L (46-116); ANION GAP 8 (8-16); ASPARTATE AMINO TRANSFERASE 35 U/L (10-37); BILIRUBIN,TOTAL 0.7 MG/DL (0.1-1.0); BLOOD UREA NITROGEN 36 MG/DL (7-18); BUN/CREATININE RATIO 27.3 (5.4-32.0); CALCIUM 8.8 MG/DL (8.5-10.1); CHLORIDE 104 MMOL/L (99-107); CREATININE 1.32 MG/DL (0.60-1.10); GLUCOSE 171 MG/DL (70-104); POTASSIUM 4.5 MMOL/L (3.5-5.1); SODIUM 138 MMOL/L (135-145); TOTAL CARBON DIOXIDE 26.4 MMOL/L (24-32); TOTAL PROTEIN 7.1 G/DL (6.4-8.2); eGFR 53 ML/MIN
[2021-07-31 10:00] VITALS: BP 123/70
[2021-07-31] MEDS: albuterol 60 PUFF/8GM Inhaler IH PRN ×2 (11:04→19:59)
[2021-07-31 14:00] VITALS: BP 137/75
[2021-07-31 14:59] LABS: D-DIMER 0.44 MG/L FEU (0-0.50)
[2021-07-31 18:00] VITALS: BP 140/74
--- NOTE | 2021-07-31 18:54 | NUR ---
Problems reprioritized. Patient report given, questions answered & plan of care reviewed with ALDO Keith.
[2021-07-31 22:00] VITALS: BP 123/70
[2021-07-31] MEDS: REMDESIVIR 100 MG in NS 100ml IVPB IV SCH (23:30)
[2021-08-01 02:00] VITALS: BP 122/78
[2021-08-01 06:00] VITALS: BP 121/80
--- NOTE | 2021-08-01 06:22 | NUR ---
Patient in room ORTHO 4014A. I have received report from ALDO ARELLANO and had the opportunity to ask questions and assume patient care.
[2021-08-01] MEDS: amLODIPine 5mg tablet PO SCH (07:25)
[2021-08-01] MEDS: docusate sod 100mg capsule PO SCH ×2 (07:26→20:00)
[2021-08-01] MEDS: apixaban 5mg tablet PO SCH ×2 (07:26→20:12)
[2021-08-01] MEDS: metoprolol tartrate 12.5mg (1/2 tablet) PO SCH ×2 (07:26→20:14)
[2021-08-01] MEDS: FLUTICASONE IH SCH (07:27)
[2021-08-01] MEDS: VILANTEROL IH SCH (07:27)
[2021-08-01] MEDS: dexamethasone inj 6 MG in normal saline 50ml IV soln 50 ML IV SCH ×2 (07:27→20:11)
[2021-08-01] MEDS: albuterol 60 PUFF/8GM Inhaler IH PRN (07:34)
[2021-08-01 07:36] LABS: BASOPHILS % (AUTO) 0 % (0-1); EOSINOPHILS % (AUTO) 0 % (0-6); HEMATOCRIT 46.1 % (42.0-52.0); HEMOGLOBIN 15.6 g/dl (14.0-17.9); LYMPHOCYTES # (AUTO) 0.3 X10'3 (1.1-4.8); LYMPHOCYTES % (AUTO) 3.7 % (21-51); MEAN CORPUSCULAR HEMOGLOBIN 29.3 PG (27.0-31.0); MEAN CORPUSCULAR HGB CONC 33.7 g/dL (33.0-36.5); MEAN CORPUSCULAR VOLUME 86.9 FL (78-98); MONOCYTES # (AUTO) 0.7 X10'3 (0-0.9); MONOCYTES % (AUTO) 7.8 % (2-12); NEUTROPHILS % (AUTO) 88.5 % (42-75); PLATELET COUNT 311 X10'3 (140-440); RED BLOOD COUNT 5.31 X10'6 (4.70-6.10); RED CELL DISTRIBUTION WIDTH 13.7 % (11.5-14.5); WHITE BLOOD COUNT 9.1 X10'3 (4.5-11.0)
[2021-08-01] MEDS: HYDROcodone/acetaminophen 10/325mg tab PO PRN (07:41)
[2021-08-01 07:47] LABS: D-DIMER 0.26 MG/L FEU (0-0.50)
[2021-08-01] MEDS: K and/or MAG REPLACEMENT MC SCH ×2 (08:00→20:00)
[2021-08-01 08:06] LABS: ALANINE AMINOTRANSFERASE 58 U/L (12-78); ALBUMIN 2.3 G/DL (3.4-5.0); ALBUMIN/GLOBULIN RATIO 0.6 (1.1-1.5); ALKALINE PHOSPHATASE 54 IU/L (46-116); ANION GAP 8 (8-16); ASPARTATE AMINO TRANSFERASE 48 U/L (10-37); BILIRUBIN,TOTAL 0.7 MG/DL (0.1-1.0); BLOOD UREA NITROGEN 32 MG/DL (7-18); BUN/CREATININE RATIO 26.2 (5.4-32.0); C-REACTIVE PROTEIN 1.35 MG/DL (0.0-0.5); CALCIUM 8.4 MG/DL (8.5-10.1); CHLORIDE 106 MMOL/L (99-107); CREATININE 1.22 MG/DL (0.60-1.10); GLUCOSE 189 MG/DL (70-104); POTASSIUM 4.8 MMOL/L (3.5-5.1); SODIUM 140 MMOL/L (135-145); TOTAL CARBON DIOXIDE 26.1 MMOL/L (24-32); TOTAL PROTEIN 6.1 G/DL (6.4-8.2); eGFR 58 ML/MIN
[2021-08-01 10:00] VITALS: BP 135/76
--- NOTE | 2021-08-01 11:29 | NUR ---
Page Sent PAGER ID: [phone] MESSAGE: EDWINA [phone]-RE: DANY LAZARO [id number]...PT REPORTING INCREASING PAIN L LUNG AND AROUND THORAVENT SITE. NORCO 10 GIVEN FOR PAIN WITH MINIMAL HELP.
[2021-08-01] MEDS ORDERED: HYDROmorphone inj. 0.5 MG/0.5 ML DISP.SYRIN IV PRN (11:35)
[2021-08-01] MEDS ORDERED: morphine 2 MG/ML inj. syringe IV PRN ×2 (11:35)
--- NOTE | 2021-08-01 12:01 | NUR ---
Spoke with Vanna CARLSON for patient, let her know the plan of getting a CXR now to evaluate the lung post thoravent placement on 07/28. RN reports that the tube exiting patient's chest has been clamped. I instructed her to unclamp the tube and get CXR, we will evaluate and the thoravent will need to be exchanged for an atrium and attached to suction. We will get a repeat CXR this afternoon to make ensure appropriate measures are being taken.
[2021-08-01 14:00] VITALS: BP 145/74
--- NOTE | 2021-08-01 14:21 | NUR ---
Initial: Pt admit DX COVID-19 pneumonitis, R pleural effusion s/p CT placement, HTN, and recurrent PE per EMR. PO ~53% avg heart healthy meals w/ 100% past two nights partially meeting needs. RD recommends ensure enlive TIDWM for additional protein/kcals; MD notified. LBM 07/27 receiving routine colace; would benefit from additional bowel care given 5 days constipation if MD agreeable. Will continue to monitor. Rec: 1. continue heart healthy diet; encourage PO 2. ensure enlive TIDWM; pending MD verification in EMR 3. routine bowel care; consider additional given 5 days constipation per MD discretion 4. scaled wt this admit; subsequent weekly wts Addendum: 08/01/21 at [address] Amended: Links added.
[2021-08-01 18:00] VITALS: BP 129/74
[2021-08-01] MEDS: lactose-reduced food (Ensure Enlive) - 237ml bottle PO SCH (18:00)
--- NOTE | 2021-08-01 18:25 | NUR ---
Problems reprioritized. Patient report given, questions answered & plan of care reviewed with ALDO FORDE.
[2021-08-01] MEDS: REMDESIVIR 100 MG in NS 100ml IVPB IV SCH (21:18)
[2021-08-01 22:00] VITALS: BP 127/81
[2021-08-02 02:00] VITALS: BP 126/70
[2021-08-02 06:00] VITALS: BP 125/73
--- NOTE | 2021-08-02 06:30 | NUR ---
Patient in room ORTHO 4014A. I have received report from ALDO FORDE and had the opportunity to ask questions and assume patient care.
[2021-08-02 07:55] LABS: BASOPHILS % (AUTO) 0.4 % (0-1); EOSINOPHILS % (AUTO) 0 % (0-6); HEMATOCRIT 46.2 % (42.0-52.0); HEMOGLOBIN 15.8 g/dl (14.0-17.9); LYMPHOCYTES # (AUTO) 0.3 X10'3 (1.1-4.8); LYMPHOCYTES % (AUTO) 2.9 % (21-51); MEAN CORPUSCULAR HEMOGLOBIN 29.6 PG (27.0-31.0); MEAN CORPUSCULAR HGB CONC 34.2 g/dL (33.0-36.5); MEAN CORPUSCULAR VOLUME 86.7 FL (78-98); MEAN PLATELET VOLUME 7.8 FL (7.4-10.4); MONOCYTES # (AUTO) 0.6 X10'3 (0-0.9); MONOCYTES % (AUTO) 5.8 % (2-12); NEUTROPHILS # (AUTO) 8.8 X10'3 (1.8-7.7); NEUTROPHILS % (AUTO) 90.9 % (42-75); PLATELET COUNT 350 X10'3 (140-440); RED BLOOD COUNT 5.33 X10'6 (4.70-6.10); RED CELL DISTRIBUTION WIDTH 13.3 % (11.5-14.5); WHITE BLOOD COUNT 9.7 X10'3 (4.5-11.0)
[2021-08-02] MEDS: lactose-reduced food (Ensure Enlive) - 237ml bottle PO SCH ×3 (08:00→18:00)
[2021-08-02] MEDS: VILANTEROL IH SCH (08:00)
[2021-08-02] MEDS: FLUTICASONE IH SCH (08:00)
[2021-08-02] MEDS: K and/or MAG REPLACEMENT MC SCH ×2 (08:00→18:41)
[2021-08-02 08:10] LABS: ALANINE AMINOTRANSFERASE 88 U/L (12-78); ALBUMIN 2.3 G/DL (3.4-5.0); ALBUMIN/GLOBULIN RATIO 0.6 (1.1-1.5); ALKALINE PHOSPHATASE 52 IU/L (46-116); ANION GAP 10 (8-16); ASPARTATE AMINO TRANSFERASE 70 U/L (10-37); BILIRUBIN,TOTAL 0.8 MG/DL (0.1-1.0); BLOOD UREA NITROGEN 35 MG/DL (7-18); BUN/CREATININE RATIO 31.3 (5.4-32.0); C-REACTIVE PROTEIN 1.13 MG/DL (0.0-0.5); CALCIUM 8.3 MG/DL (8.5-10.1); CHLORIDE 107 MMOL/L (99-107); CREATININE 1.12 MG/DL (0.60-1.10); GLUCOSE 210 MG/DL (70-104); POTASSIUM 4.7 MMOL/L (3.5-5.1); SODIUM 142 MMOL/L (135-145); TOTAL CARBON DIOXIDE 25.5 MMOL/L (24-32); TOTAL PROTEIN 6.3 G/DL (6.4-8.2); eGFR 64 ML/MIN
[2021-08-02] MEDS: metoprolol tartrate 12.5mg (1/2 tablet) PO SCH ×2 (08:31→19:12)
[2021-08-02] MEDS: HYDROcodone/acetaminophen 10/325mg tab PO PRN (08:32)
[2021-08-02] MEDS: apixaban 5mg tablet PO SCH ×2 (08:32→19:17)
[2021-08-02] MEDS: amLODIPine 5mg tablet PO SCH (08:32)
[2021-08-02] MEDS: dexamethasone inj 6 MG in normal saline 50ml IV soln 50 ML IV SCH ×2 (08:33→19:17)
[2021-08-02] MEDS: docusate sod 100mg capsule PO SCH ×2 (08:33→19:17)
[2021-08-02 09:44] LABS: D-DIMER 0.44 MG/L FEU (0-0.50)
[2021-08-02 10:00] VITALS: BP 135/75
[2021-08-02 14:00] VITALS: BP 124/66
[2021-08-02 18:00] VITALS: BP 132/72
--- NOTE | 2021-08-02 18:29 | NUR ---
Problems reprioritized. Patient report given, questions answered & plan of care reviewed with ALDO HERNDON.
[2021-08-02 22:00] VITALS: BP 125/71
[2021-08-03 02:00] VITALS: BP 155/67
--- NOTE | 2021-08-03 06:44 | NUR ---
Problems reprioritized. Patient report given, questions answered & plan of care reviewed with Saleem CARLSON.
[2021-08-03] MEDS: docusate sod 100mg capsule PO SCH ×2 (07:32→19:11)
[2021-08-03] MEDS: apixaban 5mg tablet PO SCH ×2 (07:32→19:24)
[2021-08-03] MEDS: amLODIPine 5mg tablet PO SCH (07:32)
[2021-08-03] MEDS: metoprolol tartrate 12.5mg (1/2 tablet) PO SCH ×2 (07:32→19:10)
[2021-08-03] MEDS: lactose-reduced food (Ensure Enlive) - 237ml bottle PO SCH ×5 (07:32→19:08)
[2021-08-03] MEDS: dexamethasone inj 6 MG in normal saline 50ml IV soln 50 ML IV SCH ×2 (07:32→19:24)
[2021-08-03] MEDS: HYDROcodone/acetaminophen 10/325mg tab PO PRN (07:39)
[2021-08-03 08:00] VITALS: BP 144/95
[2021-08-03] MEDS: VILANTEROL IH SCH (08:00)
[2021-08-03] MEDS: FLUTICASONE IH SCH (08:00)
[2021-08-03] MEDS: K and/or MAG REPLACEMENT MC SCH ×2 (08:00→18:35)
[2021-08-03 08:50] LABS: D-DIMER 0.89 MG/L FEU (0-0.50)
[2021-08-03 10:00] VITALS: BP 146/78
[2021-08-03 14:00] VITALS: BP 123/91
[2021-08-03 18:00] VITALS: BP 133/71
[2021-08-03 22:00] VITALS: BP 123/70
[2021-08-04] MEDS: HYDROcodone/acetaminophen 10/325mg tab PO PRN ×2 (01:31→07:57)
[2021-08-04 02:00] VITALS: BP 138/76
[2021-08-04 06:00] VITALS: BP 122/72
--- NOTE | 2021-08-04 06:32 | NUR ---
Problems reprioritized. Patient report given, questions answered & plan of care reviewed with Saleem CARLSON.
[2021-08-04] MEDS: VILANTEROL IH SCH (08:00)
[2021-08-04] MEDS: K and/or MAG REPLACEMENT MC SCH ×2 (08:00→19:05)
[2021-08-04] MEDS: FLUTICASONE IH SCH (08:00)
[2021-08-04] MEDS: docusate sod 100mg capsule PO SCH ×2 (08:01→19:06)
[2021-08-04] MEDS: amLODIPine 5mg tablet PO SCH (08:01)
[2021-08-04] MEDS: apixaban 5mg tablet PO SCH ×2 (08:01→19:19)
[2021-08-04] MEDS: dexamethasone inj 6 MG in normal saline 50ml IV soln 50 ML IV SCH ×2 (08:01→19:19)
[2021-08-04] MEDS: metoprolol tartrate 12.5mg (1/2 tablet) PO SCH ×2 (08:01→19:19)
[2021-08-04 10:00] VITALS: BP 129/83
[2021-08-04 14:00] VITALS: BP 124/82
[2021-08-04 18:00] VITALS: BP 141/75
[2021-08-04 22:00] VITALS: BP 126/74
[2021-08-05 02:00] VITALS: BP 152/99
[2021-08-05 06:00] VITALS: BP 137/78
--- NOTE | 2021-08-05 06:15 | NUR ---
Problems reprioritized. Patient report given, questions answered & plan of care reviewed with Orly CARLSON.
[2021-08-05] MEDS: docusate sod 100mg capsule PO SCH ×2 (07:28→19:23)
[2021-08-05] MEDS: apixaban 5mg tablet PO SCH ×2 (07:28→19:31)
[2021-08-05] MEDS: dexamethasone inj 6 MG in normal saline 50ml IV soln 50 ML IV SCH ×2 (07:37→19:31)
[2021-08-05] MEDS: amLODIPine 5mg tablet PO SCH (07:37)
[2021-08-05] MEDS: VILANTEROL IH SCH (07:41)
[2021-08-05] MEDS: FLUTICASONE IH SCH (07:41)
[2021-08-05] MEDS: metoprolol tartrate 12.5mg (1/2 tablet) PO SCH ×2 (07:42→19:31)
[2021-08-05] MEDS: K and/or MAG REPLACEMENT MC SCH ×2 (08:00→19:23)
[2021-08-05] MEDS: lactose-reduced food (Ensure Enlive) - 237ml bottle PO SCH ×3 (08:00→18:35)
[2021-08-05 10:00] VITALS: BP 139/79
--- NOTE | 2021-08-05 10:29 | NUR ---
PAGER ID: [phone] MESSAGE: Amanda [phone] - re: [id number] Ford Mckeon. No labs today. Do you want to order labs and a chest xray for today? Pt has chest tube
--- NOTE | 2021-08-05 12:45 | NUR ---
PAGER ID: [phone] MESSAGE: Amanda [phone] re: Ford Mckeon in [id number]. Do you want labs ordered for today?
[2021-08-05 13:41] LABS: BASOPHILS % (AUTO) 0.2 % (0-1); EOSINOPHILS % (AUTO) 0.1 % (0-6); HEMATOCRIT 51.5 % (42.0-52.0); HEMOGLOBIN 16.9 g/dl (14.0-17.9); LYMPHOCYTES # (AUTO) 0.4 X10'3 (1.1-4.8); LYMPHOCYTES % (AUTO) 2.3 % (21-51); MEAN CORPUSCULAR HGB CONC 32.9 g/dL (33.0-36.5); MEAN CORPUSCULAR VOLUME 88.3 FL (78-98); MEAN PLATELET VOLUME 7.8 FL (7.4-10.4); MONOCYTES # (AUTO) 0.4 X10'3 (0-0.9); MONOCYTES % (AUTO) 2.2 % (2-12); NEUTROPHILS # (AUTO) 15.1 X10'3 (1.8-7.7); NEUTROPHILS % (AUTO) 95.2 % (42-75); PLATELET COUNT 376 X10'3 (140-440); RED BLOOD COUNT 5.83 X10'6 (4.70-6.10); RED CELL DISTRIBUTION WIDTH 13.8 % (11.5-14.5); WHITE BLOOD COUNT 15.8 X10'3 (4.5-11.0)
[2021-08-05 13:49] LABS: ALBUMIN 2.3 G/DL (3.4-5.0); ANION GAP 12 (8-16); BLOOD UREA NITROGEN 43 MG/DL (7-18); BUN/CREATININE RATIO 35.8 (5.4-32.0); CALCIUM 8.5 MG/DL (8.5-10.1); CHLORIDE 103 MMOL/L (99-107); GLUCOSE 269 MG/DL (70-104); SODIUM 138 MMOL/L (135-145); TOTAL CARBON DIOXIDE 22.7 MMOL/L (24-32); eGFR 59 ML/MIN
--- NOTE | 2021-08-05 15:09 | NUR ---
Reassessment: Pt PO improving past 3 days to ~50-75% avg meals w/ 75-100% lunch today partially meeting needs. Noted documented as refusing Ensure Enlives TIDWM since 08/03 per EMR; TIA d/w RN who reports pt actually not receiving ONS. Dietary notified of ONS in EMR. LBM 08/02 receiving routine colace. Will continue to monitor for PO/ONS trends and further protein/kcal needs this admit. Rec: 1. continue heart healthy diet; encourage PO 2. ensure enlive TIDWM; encourage PO monitor for acceptance trends. Stop ONS if pt truly refuses 3. routine bowel care 4. scaled wt this admit; subsequent weekly wts Addendum: 08/05/21 at [address] Amended: Links added.
--- NOTE | 2021-08-05 16:20 | NUR ---
PAGER ID: [phone] MESSAGE: Amanda [phone] re: Ford Mckeon in rm [phone]. Can we get a physical therapy order?
[2021-08-05 18:00] VITALS: BP 137/84
--- NOTE | 2021-08-05 18:48 | NUR ---
Problems reprioritized. Patient report given, questions answered & plan of care reviewed with June CARLSON.
[2021-08-05 22:00] VITALS: BP 125/77
[2021-08-06 02:00] VITALS: BP 122/71
[2021-08-06 06:00] VITALS: BP 137/71
--- NOTE | 2021-08-06 06:56 | NUR ---
Problems reprioritized. Patient report given, questions answered & plan of care reviewed with Saleem CARLSON .
[2021-08-06] MEDS: docusate sod 100mg capsule PO SCH ×2 (08:00→19:23)
[2021-08-06] MEDS: K and/or MAG REPLACEMENT MC SCH ×2 (08:00→19:23)
[2021-08-06] MEDS: VILANTEROL IH SCH (08:00)
[2021-08-06] MEDS: FLUTICASONE IH SCH (08:00)
[2021-08-06] MEDS: HYDROcodone/acetaminophen 10/325mg tab PO PRN (08:09)
[2021-08-06] MEDS: amLODIPine 5mg tablet PO SCH (08:20)
[2021-08-06] MEDS: metoprolol tartrate 12.5mg (1/2 tablet) PO SCH ×2 (08:20→19:23)
[2021-08-06] MEDS: apixaban 5mg tablet PO SCH ×2 (08:20→19:21)
[2021-08-06] MEDS: dexamethasone inj 6 MG in normal saline 50ml IV soln 50 ML IV SCH ×2 (08:21→19:22)
[2021-08-06] MEDS: lactose-reduced food (Ensure Enlive) - 237ml bottle PO SCH ×3 (08:21→18:00)
[2021-08-06 08:22] LABS: BASOPHILS % (AUTO) 0.2 % (0-1); EOSINOPHILS % (AUTO) 0.1 % (0-6); HEMOGLOBIN 16.8 g/dl (14.0-17.9); LYMPHOCYTES # (AUTO) 0.4 X10'3 (1.1-4.8); LYMPHOCYTES % (AUTO) 3.3 % (21-51); MEAN CORPUSCULAR HEMOGLOBIN 29.8 PG (27.0-31.0); MEAN CORPUSCULAR HGB CONC 34.2 g/dL (33.0-36.5); MEAN PLATELET VOLUME 7.8 FL (7.4-10.4); MONOCYTES # (AUTO) 0.5 X10'3 (0-0.9); NEUTROPHILS # (AUTO) 11.6 X10'3 (1.8-7.7); NEUTROPHILS % (AUTO) 92.4 % (42-75); PLATELET COUNT 338 X10'3 (140-440); RED BLOOD COUNT 5.63 X10'6 (4.70-6.10); RED CELL DISTRIBUTION WIDTH 13.6 % (11.5-14.5); WHITE BLOOD COUNT 12.6 X10'3 (4.5-11.0)
[2021-08-06 08:54] LABS: BLOOD UREA NITROGEN 45 MG/DL (7-18); BUN/CREATININE RATIO 42.5 (5.4-32.0); CHLORIDE 105 MMOL/L (99-107); CREATININE 1.06 MG/DL (0.60-1.10); GLUCOSE 190 MG/DL (70-104); eGFR 68 ML/MIN
[2021-08-06 08:56] LABS: ALBUMIN 2.2 G/DL (3.4-5.0); ANION GAP 10 (8-16); CALCIUM 8.5 MG/DL (8.5-10.1); POTASSIUM 4.9 MMOL/L (3.5-5.1); SODIUM 140 MMOL/L (135-145)
[2021-08-06 10:00] VITALS: BP 126/84
[2021-08-06 14:00] VITALS: BP 133/79
[2021-08-06 18:00] VITALS: BP 153/70
[2021-08-06 22:00] VITALS: BP 140/80
[2021-08-07 02:00] VITALS: BP 144/74
--- NOTE | 2021-08-07 06:16 | NUR ---
Problems reprioritized. Patient report given, questions answered & plan of care reviewed with Karla CARLSON .
--- NOTE | 2021-08-07 06:16 | NUR ---
Patient in room ORTHO 4014. I have received report from June CARLSON and had the opportunity to ask questions and assume patient care.
[2021-08-07 06:58] VITALS: BP 148/72
[2021-08-07] MEDS: docusate sod 100mg capsule PO SCH ×3 (07:47→21:00)
[2021-08-07] MEDS: apixaban 5mg tablet PO SCH (07:47)
[2021-08-07] MEDS: dexamethasone inj 6 MG in normal saline 50ml IV soln 50 ML IV SCH ×2 (07:47→21:00)
[2021-08-07] MEDS: metoprolol tartrate 12.5mg (1/2 tablet) PO SCH ×3 (08:00→21:00)
[2021-08-07] MEDS: VILANTEROL IH SCH (08:00)
[2021-08-07] MEDS: amLODIPine 5mg tablet PO SCH (08:00)
[2021-08-07] MEDS: lactose-reduced food (Ensure Enlive) - 237ml bottle PO SCH ×3 (08:00→18:00)
[2021-08-07] MEDS: FLUTICASONE IH SCH (08:00)
[2021-08-07] MEDS: K and/or MAG REPLACEMENT MC SCH ×2 (08:00→20:00)
[2021-08-07 09:05] LABS: D-DIMER 0.51 MG/L FEU (0-0.50)
[2021-08-07 09:07] LABS: ALBUMIN 2.4 G/DL (3.4-5.0); ANION GAP 7 (8-16); BLOOD UREA NITROGEN 42 MG/DL (7-18); BUN/CREATININE RATIO 36.2 (5.4-32.0); CALCIUM 8.9 MG/DL (8.5-10.1); CHLORIDE 105 MMOL/L (99-107); CREATININE 1.16 MG/DL (0.60-1.10); GLUCOSE 206 MG/DL (70-104); POTASSIUM 4.3 MMOL/L (3.5-5.1); SODIUM 142 MMOL/L (135-145); TOTAL CARBON DIOXIDE 29.7 MMOL/L (24-32); eGFR 61 ML/MIN
[2021-08-07 09:13] LABS: BASOPHILS % (AUTO) 0.3 % (0-1); EOSINOPHILS % (AUTO) 0.1 % (0-6); HEMATOCRIT 50.3 % (42.0-52.0); LYMPHOCYTES # (AUTO) 0.6 X10'3 (1.1-4.8); LYMPHOCYTES % (AUTO) 4.7 % (21-51); MEAN CORPUSCULAR HEMOGLOBIN 29.4 PG (27.0-31.0); MEAN CORPUSCULAR HGB CONC 33.7 g/dL (33.0-36.5); MEAN CORPUSCULAR VOLUME 87.2 FL (78-98); MEAN PLATELET VOLUME 7.9 FL (7.4-10.4); MONOCYTES # (AUTO) 0.6 X10'3 (0-0.9); MONOCYTES % (AUTO) 4.8 % (2-12); NEUTROPHILS # (AUTO) 11.6 X10'3 (1.8-7.7); NEUTROPHILS % (AUTO) 90.1 % (42-75); PLATELET COUNT 359 X10'3 (140-440); RED BLOOD COUNT 5.77 X10'6 (4.70-6.10); RED CELL DISTRIBUTION WIDTH 13.9 % (11.5-14.5); WHITE BLOOD COUNT 12.9 X10'3 (4.5-11.0)
[2021-08-07 11:35] VITALS: BP 128/78
--- NOTE | 2021-08-07 13:10 | NUR ---
PAGER ID: [phone] MESSAGE: [phone], Mike IR doctor is recommending cardiothoracic surgery consult due to his air leak with his thoravent still in place. Dr. Pires is medical operations supervisor # [phone]. Also can I get a decongestant? thanks pranay [phone]
[2021-08-07] MEDS ORDERED: iohexol 300mg/ml 100ml inj. ONE (15:03)
--- NOTE | 2021-08-07 16:50 | NUR ---
Transported patient to CT scan with the help of the tech. Tolerated well minimal shortness of breath, maintained 02 saturations in the 90s throughout the duration of the trip to ct.
--- NOTE | 2021-08-07 18:43 | NUR ---
Problems reprioritized. Patient report given, questions answered & plan of care reviewed with Inna CARLSON, discussed finding of tension pneumothorax with mediastinal shift on CT scan and air leak in chest tube, virtual radiology to call Dr. Kidd.
[2021-08-07] MEDS: oxymetazoline 15 ML nasal spray NS SCH (20:58)
--- NOTE | 2021-08-07 21:47 | NUR ---
DR. GARCÍA IN TO SEE PATIENT AFTER FINDINGS ON CT SCAN THIS EVENING. HE WAS IN TO SEE THE PATIENT AND EXPLAINED FINDINGS AND PLAN OF CARE GOING FORWARD. PATIENT HAD REPEAT CHEST X-RAY WHILE ON SUCTION TO COMPARE TO PREVIOUS IMAGE ON THE . DR. GARCÍA TOLD THE PATIENT IF THE IMAGE LOOKED WORSE HE WILL PUT IN A CHEST TUBE IN THE MORNING. SINCE PATIENTS LAST DOSE OF ELIQUIS WAS 0745 ON 08/07 PATIENT WILL GO TO SURGERY 08/09. DR. GOMES HAD PUT IN AN ORDER FOR TRANSFER TO ICU BUT AFTER CONSULTING WITH DR. GARCÍA AND THE [employer] MANAGER THE PATIENT WILL STAY ON ORTHO. DR. MORTON NOTIFIED THAT PATIENT WILL NOT BE TRANSFERRING TO THE ICU. HE WILL BE OUT OF COVID ISOLATION 08/08 AND WILL BE SEEN BY INFECTIOUS DISEASE. AT THIS TIME PATIENT IS IN STABLE CONDITION, STATES "I FEEL GREAT".
[2021-08-07 22:00] VITALS: BP 133/78
[2021-08-08 02:00] VITALS: BP 143/77
[2021-08-08 06:41] VITALS: BP 131/71
[2021-08-08 07:15] LABS: BASOPHILS % (AUTO) 0.3 % (0-1); EOSINOPHILS % (AUTO) 0.1 % (0-6); HEMATOCRIT 46.9 % (42.0-52.0); HEMOGLOBIN 15.5 g/dl (14.0-17.9); LYMPHOCYTES # (AUTO) 0.4 X10'3 (1.1-4.8); LYMPHOCYTES % (AUTO) 2.9 % (21-51); MEAN CORPUSCULAR HGB CONC 33.1 g/dL (33.0-36.5); MEAN CORPUSCULAR VOLUME 87.7 FL (78-98); MEAN PLATELET VOLUME 8.4 FL (7.4-10.4); MONOCYTES # (AUTO) 0.5 X10'3 (0-0.9); MONOCYTES % (AUTO) 3.9 % (2-12); NEUTROPHILS # (AUTO) 12.3 X10'3 (1.8-7.7); NEUTROPHILS % (AUTO) 92.8 % (42-75); PLATELET COUNT 284 X10'3 (140-440); RED BLOOD COUNT 5.35 X10'6 (4.70-6.10); RED CELL DISTRIBUTION WIDTH 13.5 % (11.5-14.5); WHITE BLOOD COUNT 13.3 X10'3 (4.5-11.0)
[2021-08-08 07:27] LABS: ALBUMIN 2.3 G/DL (3.4-5.0); ANION GAP 7 (8-16); BLOOD UREA NITROGEN 42 MG/DL (7-18); BUN/CREATININE RATIO 38.5 (5.4-32.0); CALCIUM 8.8 MG/DL (8.5-10.1); CHLORIDE 106 MMOL/L (99-107); CREATININE 1.09 MG/DL (0.60-1.10); GLUCOSE 210 MG/DL (70-104); POTASSIUM 4.7 MMOL/L (3.5-5.1); SODIUM 143 MMOL/L (135-145); TOTAL CARBON DIOXIDE 30.4 MMOL/L (24-32); eGFR 66 ML/MIN
[2021-08-08] MEDS: FLUTICASONE IH SCH (08:00)
[2021-08-08] MEDS: VILANTEROL IH SCH (08:00)
[2021-08-08] MEDS: docusate sod 100mg capsule PO SCH ×2 (08:22→19:03)
[2021-08-08] MEDS: dexamethasone inj 6 MG in normal saline 50ml IV soln 50 ML IV SCH (08:22)
[2021-08-08] MEDS: metoprolol tartrate 12.5mg (1/2 tablet) PO SCH ×2 (08:23→19:03)
[2021-08-08] MEDS: amLODIPine 5mg tablet PO SCH (08:31)
[2021-08-08] MEDS: lactose-reduced food (Ensure Enlive) - 237ml bottle PO SCH ×3 (08:34→19:01)
[2021-08-08] MEDS: oxymetazoline 15 ML nasal spray NS SCH ×2 (08:34→19:04)
[2021-08-08] MEDS: K and/or MAG REPLACEMENT MC SCH ×2 (08:36→19:03)
[2021-08-08] MEDS ORDERED: gabapentin 400mg capsule PO ONE (08:40)
[2021-08-08 09:30] LABS: PARTIAL THROMBOPLASTIN TIME 25 SECONDS (22-32)
[2021-08-08] MEDS ORDERED: MESSAGE TO NURSING PO ONE (10:00)
[2021-08-08 12:00] VITALS: BP 129/73
--- NOTE | 2021-08-08 18:22 | NUR ---
Problems reprioritized. Patient report given, questions answered & plan of care reviewed with Inna CARLSON.
[2021-08-08 22:00] VITALS: BP 128/77
[2021-08-08] MEDS ORDERED: enoxaparin 40mg/0.4ml syringe SUBCUT ONE (23:20)
[2021-08-09] VITALS (15 sets, daily range): BP systolic 110–199; BP diastolic 60–103
[2021-08-09] MEDS: oxymetazoline 15 ML nasal spray NS SCH ×2 (08:00→20:00)
[2021-08-09] MEDS: K and/or MAG REPLACEMENT MC SCH (08:00)
[2021-08-09] MEDS: VILANTEROL IH SCH (08:00)
[2021-08-09] MEDS: lactose-reduced food (Ensure Enlive) - 237ml bottle PO SCH ×2 (08:00→13:00)
[2021-08-09] MEDS: docusate sod 100mg capsule PO SCH ×3 (08:00→20:00)
[2021-08-09] MEDS: FLUTICASONE IH SCH (08:00)
[2021-08-09 08:03] LABS: BASOPHILS % (AUTO) 0.1 % (0-1); EOSINOPHILS # (AUTO) 0.2 X10'3 (0-0.9); EOSINOPHILS % (AUTO) 1.8 % (0-6); HEMATOCRIT 46.3 % (42.0-52.0); HEMOGLOBIN 15.8 g/dl (14.0-17.9); LYMPHOCYTES # (AUTO) 0.6 X10'3 (1.1-4.8); LYMPHOCYTES % (AUTO) 6.6 % (21-51); MEAN CORPUSCULAR HEMOGLOBIN 29.7 PG (27.0-31.0); MEAN CORPUSCULAR VOLUME 87.2 FL (78-98); MEAN PLATELET VOLUME 8.5 FL (7.4-10.4); MONOCYTES # (AUTO) 0.8 X10'3 (0-0.9); MONOCYTES % (AUTO) 8.1 % (2-12); NEUTROPHILS # (AUTO) 7.9 X10'3 (1.8-7.7); NEUTROPHILS % (AUTO) 83.4 % (42-75); PLATELET COUNT 245 X10'3 (140-440); RED BLOOD COUNT 5.31 X10'6 (4.70-6.10); RED CELL DISTRIBUTION WIDTH 13.5 % (11.5-14.5); WHITE BLOOD COUNT 9.5 X10'3 (4.5-11.0)
[2021-08-09] MEDS: gabapentin 400mg capsule PO ONE ×2 (08:07→08:17)
[2021-08-09] MEDS: metoprolol tartrate 12.5mg (1/2 tablet) PO SCH ×2 (08:08→20:00)
[2021-08-09 08:09] LABS: ALBUMIN 2.1 G/DL (3.4-5.0); ANION GAP 5 (8-16); BLOOD UREA NITROGEN 38 MG/DL (7-18); BUN/CREATININE RATIO 33.3 (5.4-32.0); CALCIUM 8.3 MG/DL (8.5-10.1); CHLORIDE 105 MMOL/L (99-107); CREATININE 1.14 MG/DL (0.60-1.10); GLUCOSE 225 MG/DL (70-104); POTASSIUM 4.1 MMOL/L (3.5-5.1); SODIUM 142 MMOL/L (135-145); TOTAL CARBON DIOXIDE 31.7 MMOL/L (24-32); eGFR 62 ML/MIN
[2021-08-09] MEDS: amLODIPine 5mg tablet PO SCH (08:09)
[2021-08-09] MEDS: dexamethasone inj 6 MG in normal saline 50ml IV soln 50 ML IV SCH (08:10)
[2021-08-09] MEDS ORDERED: MESSAGE TO NURSING PO ONE ×2 (08:30→10:00)
[2021-08-09] MEDS ORDERED: cefazolin/dext.iso 2gm/50ml 50 ML IV ONE (08:40)
--- NOTE | 2021-08-09 14:21 | NUR ---
F/u 08/09: Pt PO continues to improve ~100% avg meals yesterday w/ 75-100% Ensure Enlive TIDWM meeting needs. Noted Glu 225mg/dl this AM w/ Glu only checked once daily on steroids; TIA d/w RN regarding glycemic protocol this admit if MD agreeable. LBM 08/07 refusing colace per EMR. Will continue to monitor. Rec: 1. continue heart healthy diet; encourage PO 2. ensure enlive TIDWM; encourage PO 3. routine bowel care 4. scaled wt this admit; subsequent weekly wts Addendum: 08/09/21 at [address] Amended: Links added.
--- NOTE | 2021-08-09 15:30 | NUR ---
Pt transported to OR via hospital bed AAOx3. Pt in no distress.
[2021-08-09] MEDS ORDERED: dexamethasone sod phosphate 10mg/ml inj ONE (15:40)
[2021-08-09] MEDS ORDERED: sevoflurane 250ml liquid IH ONE (15:40)
[2021-08-09] MEDS ORDERED: fentaNYL /PF 50mcg/ml 5ml ampule ONE (16:36)
[2021-08-09] MEDS ORDERED: propofol inj 20 ML IV ONE (17:01)
[2021-08-09] MEDS ORDERED: rocuronium 10mg/ml inj IV ONE ×2 (17:01)
[2021-08-09] MEDS ORDERED: ondansetron/PF 4mg/2ml inj ONE (17:02)
[2021-08-09] MEDS ORDERED: HYDROmorphone/PF 0.2 MG/ML SYRINGE IV PRN ×2 (17:30)
[2021-08-09] MEDS ORDERED: fentaNYL/PF 50MCG/1 ML 2ML syringe IV PRN ×2 (17:30)
[2021-08-09] MEDS ORDERED: hydrALAZINE 20mg/ml inj. IV PRN (17:30)
[2021-08-09] MEDS ORDERED: enalaprilat dihydrate 2.5mg/2ml vial IV PRN (17:30)
[2021-08-09] MEDS ORDERED: ringers solution, lacted 1,000 ML IV SCH (17:30)
[2021-08-09] MEDS ORDERED: FENTANYL-0.9 % NACL/PF 100 ML IV PRN (17:30)
[2021-08-09] MEDS ORDERED: ondansetron/PF 4mg/2ml inj IV PRN ×2 (17:30→18:20)
[2021-08-09] MEDS ORDERED: BUPIVAcaine/PF 2.5 mg/ml (0.25%) 30ml vial ONE (17:40)
[2021-08-09] MEDS ORDERED: ceFAZolin 1000mg inj ONE ×2 (17:47)
[2021-08-09] MEDS ORDERED: MIDAZolam 1 MG/ML 5ML VIAL ONE (17:49)
[2021-08-09] MEDS ORDERED: metoclopramide 5 mg/ml inj IV PRN (18:20)
[2021-08-09] MEDS ORDERED: albuterol 2.5 MG/3 ML nebule NEB PRN (18:20)
[2021-08-09] MEDS ORDERED: naloxone 0.4 mg/ml inj IV PRN (18:20)
[2021-08-09] MEDS ORDERED: magnesium hydroxide 30ml (MOM) UD suspension PO PRN (18:20)
--- NOTE | 2021-08-09 18:35 | NUR ---
Received from OR via , accompanied by Anesthesiologist and report given by Anesthesiolgist. PT ARRIVED TO VIA ICU BED, INTUBATED ACCOMPANIED BY DR. ALMONTE, ANESTHESIA - REPORT GIVEN, VSS, PT SEDATED, CT X2 CDI TO RIGHT CHEST WALL, ATRIUM #2 WITH 40CC BLOODY DRAINAGE, #1 STILL EMPTY-TO 20CM SXN, NOTED TO HAVE CREPITUS IN RIGHT ARM, ART LINE TO LEFT WRIST, CVL-RIGHT NECK, PIV RIGHT WRIST-D/CD, ET TUBE AT 25CM AT THE LIP, TITRATED FOR SEDATION-FENTANYL AND VERSED FOR SEDATION, SEE EMAR. NO S/S OF PAIN. SOFT WRIST RESTRAINTS ON.
[2021-08-09 18:52] LABS: ABG BASE EXCESS 2.6 mmol/L (-2.0-2.0); ABG HCO3 28.9 mmol/L (22.0-26.0); ABG OXYGEN SATURATION 93.4 % (94-97); ABG PCO2 (T) 48.1 mmHg (35.0-48.0); ABG PO2 (T) 66.5 mmHg (75.0-100.0); FCOHb 0.1 % (0.0-3.9); FMetHb 0.4 % (0.0-1.5); FO2Hb 92.9 % (94-97); PATIENT TEMPERATURE 35.9; PEEP 8 cm H2O; RESPIRATORY RATE 10 b/min; TIDAL VOLUME 700 mL; TOTAL HEMOGLOBIN 16.1 G/dl (14.0-18.0)
[2021-08-09] MEDS: midazolam 100mg in NS 100ml 100 ML IV SCH (19:04)
[2021-08-09] MEDS: gabapentin 300mg capsule PO SCH (20:00)
[2021-08-09] MEDS: mupirocin 2% nasal ointment 1gm UD NS SCH (20:00)
--- NOTE | 2021-08-09 20:05 | NUR ---
PT TAKEN TO ICU BED 2040 ON MONITOR, BAGGED UNTIL ARRIVAL AND RT PRESENT TO DOLL WIG HACKLER VENT-NO CHANGES IN SETTINGS, VSS, NO SN/SX OF PAIN, CTX2 UNCHANGED-TO 20CM SXN, PT PANT AND UNDERWEAR WET- REMOVED AND SENT WITH PT-CONDOM CATH PLACED, NO CHANGES IN SEDATION MEDS, ART LINE AND CVL PRESENT AND UNCHANGED, ET STILL AT 25CM, REPORT GIVEN TO DEZ CARLSON-ALL QUESTIONS ANSWERED, RN TAKING OVER PT CARE.
--- NOTE | 2021-08-09 20:10 | NUR ---
Rec'd pt in 2040 from PACU. Heather and CVP zero'd pt able to squeeze hand to command, but follows no other commands. wean fendtanyl weaned to 60 mcg/hr, versed weaned to 3mcg/hr at this time
--- NOTE | 2021-08-09 20:30 | NUR ---
RT at bedside. ABG results noted FiO2 increased to 80% per ABG result. Fentanyl weaned to 50 mcg/hr and versed weaned to 2 mcg/hr
[2021-08-09 20:56] LABS: ABG BASE EXCESS 1.4 mmol/L (-2.0-2.0); ABG OXYGEN SATURATION 88.5 % (94-97); ABG PCO2 (T) 39.1 mmHg (35.0-48.0); ABG PO2 (T) 50.9 mmHg (75.0-100.0); FCOHb 0.1 % (0.0-3.9); FMetHb 0.3 % (0.0-1.5); FO2Hb 88.1 % (94-97); PEEP 8 cm H2O; RESPIRATORY RATE 16 b/min; TIDAL VOLUME 500 mL; TOTAL HEMOGLOBIN 16.8 G/dl (14.0-18.0)
--- NOTE | 2021-08-09 22:05 | NUR ---
At bedside, pt agitated, attempting to tongue ETT out. Thrashing head back and forth. BP 198/94. Versed increased to 3mcg/hr fentanyl increased to 60mcg/hr
[2021-08-10] VITALS (24 sets, daily range): BP systolic 100–176; BP diastolic 58–81
[2021-08-10] MEDS: ceFAZolin inj. 1,000 MG in dextrose 5%-water 50ml 50 ML IV SCH ×2 (01:31→07:47)
[2021-08-10 02:55] LABS: ABG BASE EXCESS -3.7 mmol/L (-2.0-2.0); ABG HCO3 19.8 mmol/L (22.0-26.0); ABG OXYGEN SATURATION 92.1 % (94-97); ABG PCO2 (T) 30.8 mmHg (35.0-48.0); ABG PO2 (T) 61.3 mmHg (75.0-100.0); FCOHb 0.3 % (0.0-3.9); FMetHb 0.2 % (0.0-1.5); FO2Hb 91.6 % (94-97); PATIENT TEMPERATURE 36.6; PEEP 8 cm H2O; RESPIRATORY RATE 16 b/min; TIDAL VOLUME 500 mL; TOTAL HEMOGLOBIN 13.1 G/dl (14.0-18.0)
[2021-08-10 03:11] LABS: BASOPHILS % (AUTO) 0.1 % (0-1); EOSINOPHILS % (AUTO) 0 % (0-6); HEMATOCRIT 46.1 % (42.0-52.0); HEMOGLOBIN 15.3 g/dl (14.0-17.9); LYMPHOCYTES # (AUTO) 0.4 X10'3 (1.1-4.8); LYMPHOCYTES % (AUTO) 2.1 % (21-51); MEAN CORPUSCULAR HEMOGLOBIN 29.3 PG (27.0-31.0); MEAN CORPUSCULAR HGB CONC 33.3 g/dL (33.0-36.5); MEAN PLATELET VOLUME 8.4 FL (7.4-10.4); MONOCYTES # (AUTO) 0.9 X10'3 (0-0.9); MONOCYTES % (AUTO) 4.9 % (2-12); NEUTROPHILS # (AUTO) 17.6 X10'3 (1.8-7.7); NEUTROPHILS % (AUTO) 92.9 % (42-75); PLATELET COUNT 225 X10'3 (140-440); RED BLOOD COUNT 5.24 X10'6 (4.70-6.10); RED CELL DISTRIBUTION WIDTH 13.3 % (11.5-14.5)
[2021-08-10 03:24] LABS: ALANINE AMINOTRANSFERASE 104 U/L (12-78); ALBUMIN 1.8 G/DL (3.4-5.0); ALBUMIN/GLOBULIN RATIO 0.5 (1.1-1.5); ALKALINE PHOSPHATASE 51 IU/L (46-116); ANION GAP 9 (8-16); ASPARTATE AMINO TRANSFERASE 32 U/L (10-37); BILIRUBIN,TOTAL 0.6 MG/DL (0.1-1.0); BLOOD UREA NITROGEN 35 MG/DL (7-18); BUN/CREATININE RATIO 35.7 (5.4-32.0); CHLORIDE 110 MMOL/L (99-107); CREATININE 0.98 MG/DL (0.60-1.10); GLUCOSE 181 MG/DL (70-104); MAGNESIUM 1.7 MG/DL (1.5-2.4); SODIUM 144 MMOL/L (135-145); TOTAL CARBON DIOXIDE 25.5 MMOL/L (24-32); TOTAL PROTEIN 5.1 G/DL (6.4-8.2); eGFR 74 ML/MIN
--- NOTE | 2021-08-10 05:30 | NUR ---
RT at bedside to attempt weaning of vent. Pt agitated, opens eyes, but no contact, no follows commands, vent changed to spontaneous with RR down to 7bpm changed back to previous vent settings.Peep weaned to 5
[2021-08-10] MEDS: midazolam 100mg in NS 100ml 100 ML IV SCH (05:56)
[2021-08-10] MEDS: dexamethasone inj 6 MG in normal saline 50ml IV soln 50 ML IV SCH (07:47)
[2021-08-10] MEDS: FLUTICASONE IH SCH (08:00)
[2021-08-10] MEDS: amLODIPine 5mg tablet PO SCH (08:00)
[2021-08-10] MEDS: gabapentin 300mg capsule PO SCH ×2 (08:00→20:00)
[2021-08-10] MEDS: metoprolol tartrate 12.5mg (1/2 tablet) PO SCH ×2 (08:00→20:00)
[2021-08-10] MEDS: VILANTEROL IH SCH (08:00)
[2021-08-10] MEDS: docusate sod 100mg capsule PO SCH ×3 (08:00→20:00)
[2021-08-10] MEDS ORDERED: DEXMEDETOMIDINE 400mcg/4ml inj 400 MCG in normal saline 100ml IV soln 96 ML IV SCH (08:15)
[2021-08-10] MEDS ORDERED: propofol 10mg/ml 20ml vial IV PRN (08:15)
[2021-08-10] MEDS ORDERED: propofol 1000mg/100ml bottle 100 ML IV SCH (08:15)
[2021-08-10] MEDS ORDERED: azithromycin/NS 500mg/250ml 250 ML IV SCH (08:40)
[2021-08-10] MEDS ORDERED: CefTRIAXone/D5W-Rocephin 1gm 50 ML IV SCH (08:40)
[2021-08-10 08:45] LABS: ABG BASE EXCESS -1.2 mmol/L (-2.0-2.0); ABG HCO3 22.6 mmol/L (22.0-26.0); ABG OXYGEN SATURATION 93.3 % (94-97); ABG PCO2 (T) 35.5 mmHg (35.0-48.0); FCOHb 0.1 % (0.0-3.9); FMetHb 0.3 % (0.0-1.5); FO2Hb 92.9 % (94-97); PATIENT TEMPERATURE 37.1; PEEP 5 cm H2O; RESPIRATORY RATE 16 b/min; TIDAL VOLUME 500 mL; TOTAL HEMOGLOBIN 12.8 G/dl (14.0-18.0)
[2021-08-10] MEDS ORDERED: dexmedetomidin/NS 400mcg/100ml 100 ML IV SCH (08:45)
--- NOTE | 2021-08-10 11:28 | NUR ---
F/u 08/10: Pt intubated s/p R thoracoscopic bleb resection. Per RN, does not want pt on glycemic protocol at this time. Pt currently on Propofol at 3ml/hr providing 79kcals/day. Will continue to monitor and make recommendations as appropriate. Rec: 1. Monitor need for nutrition support if prolonged intubation 2. Upon extubation, advance to Heart Healthy diet as tolerated 3. If diet advanced to at least full liquids, Ensure Enlive TID 4. routine bowel care 5. scaled wt this admit; subsequent weekly wts Addendum: 08/10/21 at [address] Amended: Links added.
[2021-08-10] MEDS ORDERED: albumin (Human) 5% 250ml 250 ML IV ONE (11:35)
[2021-08-10] MEDS: mupirocin 2% nasal ointment 1gm UD NS SCH (12:44)
[2021-08-10] MEDS: enoxaparin 40mg/0.4ml syringe SUBCUT SCH ×2 (12:53→21:28)
[2021-08-10] MEDS ORDERED: albuterol 2.5 MG/3 ML nebule NEB PRN (14:25)
[2021-08-10] MEDS: cefepime 1GM in D5W 50mL 50 ML IV SCH (15:38)
--- NOTE | 2021-08-10 16:23 | NUR ---
weaning trial performed by Respiratory Therapist/ VC 1195 NIF -25 RSBI 27 + cuff leak results called to [facility] PELAYO orders received to extubate Also discussed pts elevated sugars, orders received to start nutritional protocol
--- NOTE | 2021-08-10 17:36 | NUR ---
pt extubated without difficulty, NGT removed also. Pt able to talk and maintain airway without difficulty. strong cough present
--- NOTE | 2021-08-10 17:42 | NUR ---
pt was able to listen to 's voice over the phone after extubation.
[2021-08-10] MEDS: lactobacillus rhamnosus 10,000 MMU CELLS/CAPSULE PO SCH (20:00)
[2021-08-10] MEDS: oxymetazoline 15 ML nasal spray NS SCH (20:00)
--- NOTE | 2021-08-10 20:00 | NUR ---
Speech clear and appropriate. Coughing @ intervals, productively. Tolerating NC @ 4L. Denies any SOB.
[2021-08-11] VITALS (16 sets, daily range): BP systolic 115–145; BP diastolic 52–85
[2021-08-11] MEDS: cefepime 1GM in D5W 50mL 50 ML IV SCH ×3 (00:28→16:31)
--- NOTE | 2021-08-11 02:00 | NUR ---
Blood sugar 149 mg/dl.
[2021-08-11 03:57] LABS: BASOPHILS % (AUTO) 0.2 % (0-1); EOSINOPHILS % (AUTO) 0.2 % (0-6); HEMATOCRIT 40.5 % (42.0-52.0); HEMOGLOBIN 13.5 g/dl (14.0-17.9); LYMPHOCYTES # (AUTO) 0.6 X10'3 (1.1-4.8); MEAN CORPUSCULAR HEMOGLOBIN 29.1 PG (27.0-31.0); MEAN CORPUSCULAR HGB CONC 33.4 g/dL (33.0-36.5); MEAN CORPUSCULAR VOLUME 87.3 FL (78-98); MEAN PLATELET VOLUME 8.8 FL (7.4-10.4); MONOCYTES # (AUTO) 0.8 X10'3 (0-0.9); MONOCYTES % (AUTO) 7.2 % (2-12); NEUTROPHILS # (AUTO) 9.9 X10'3 (1.8-7.7); NEUTROPHILS % (AUTO) 87.4 % (42-75); PLATELET COUNT 176 X10'3 (140-440); RED BLOOD COUNT 4.65 X10'6 (4.70-6.10); RED CELL DISTRIBUTION WIDTH 13.3 % (11.5-14.5); WHITE BLOOD COUNT 11.3 X10'3 (4.5-11.0)
[2021-08-11 04:25] LABS: ALANINE AMINOTRANSFERASE 69 U/L (12-78); ALBUMIN 2.1 G/DL (3.4-5.0); ALBUMIN/GLOBULIN RATIO 0.6 (1.1-1.5); ALKALINE PHOSPHATASE 46 IU/L (46-116); ANION GAP 8 (8-16); ASPARTATE AMINO TRANSFERASE 24 U/L (10-37); BLOOD UREA NITROGEN 32 MG/DL (7-18); BUN/CREATININE RATIO 33.7 (5.4-32.0); CALCIUM 7.7 MG/DL (8.5-10.1); CHLORIDE 108 MMOL/L (99-107); CREATININE 0.95 MG/DL (0.60-1.10); GLUCOSE 133 MG/DL (70-104); MAGNESIUM 2.1 MG/DL (1.5-2.4); POTASSIUM 3.8 MMOL/L (3.5-5.1); SODIUM 143 MMOL/L (135-145); TOTAL CARBON DIOXIDE 26.9 MMOL/L (24-32); TOTAL PROTEIN 5.4 G/DL (6.4-8.2); TRIGLYCERIDES 90 MG/DL (20-135); eGFR 77 ML/MIN
[2021-08-11] MEDS: FLUTICASONE IH SCH (08:00)
[2021-08-11] MEDS: K and/or MAG REPLACEMENT MC SCH (08:00)
[2021-08-11] MEDS: lactose-reduced food (Ensure Enlive) - 237ml bottle PO SCH ×3 (08:00→18:00)
[2021-08-11] MEDS: VILANTEROL IH SCH (08:00)
[2021-08-11] MEDS: metoprolol tartrate 12.5mg (1/2 tablet) PO SCH ×2 (08:29→20:36)
[2021-08-11] MEDS: amLODIPine 5mg tablet PO SCH (08:29)
[2021-08-11] MEDS: enoxaparin 40mg/0.4ml syringe SUBCUT SCH ×2 (08:29→20:37)
[2021-08-11] MEDS: dexamethasone inj 6 MG in normal saline 50ml IV soln 50 ML IV SCH (08:30)
[2021-08-11] MEDS: docusate sod 100mg capsule PO SCH ×2 (08:30→20:36)
[2021-08-11] MEDS: lactobacillus rhamnosus 10,000 MMU CELLS/CAPSULE PO SCH ×2 (08:30→20:36)
[2021-08-11] MEDS: gabapentin 300mg capsule PO SCH (08:30)
[2021-08-11] MEDS: oxymetazoline 15 ML nasal spray NS SCH ×2 (08:33→20:00)
[2021-08-11] MEDS ORDERED: potassium Cl 40MEQ/250ML bag 250 ML IV PRN (08:50)
[2021-08-11] MEDS ORDERED: potassium Cl 40MEQ/1/2NS 520ml 520 ML IV PRN (08:50)
[2021-08-11] MEDS ORDERED: potassium Cl 20mEq/100mL bag 100 ML IV PRN (08:50)
[2021-08-11] MEDS ORDERED: magnesium 2GM in 50ml NS 50 ML IV PRN (08:50)
[2021-08-11] MEDS ORDERED: potassium CL 10mEq/100ml bag 100 ML IV PRN (08:50)
[2021-08-11] MEDS ORDERED: potassium Cl 20 mEq SR tablet PO PRN (08:50)
[2021-08-11] MEDS ORDERED: magnesium 4gm in 100ml NS 100 ML IV PRN (08:50)
--- NOTE | 2021-08-11 11:25 | NUR ---
Patient in room ICU 2040. I have received report from ALDO Paul and had the opportunity to ask questions. Awaiting patient arrival from ICU to assume patient care.
--- NOTE | 2021-08-11 12:01 | NUR ---
Nutrition consult: Pt s/p thoracoscopic bleb resection, eating 50% of first meal s/p extubation. will continue to monitor. Addendum: 08/11/21 at [address] Amended: Links added.
[2021-08-11] MEDS ORDERED: mineral oil/petrolatum ophthal oint EACHEYE SCH (14:00)
--- NOTE | 2021-08-11 18:28 | NUR ---
Problems reprioritized. Patient report given, questions answered & plan of care reviewed with ALDO Benjamin.
[2021-08-11] MEDS: magnesium Cl slow-release 64mg tablet PO SCH (20:00)
[2021-08-11] MEDS: potassium Cl 20 mEq SR tablet PO SCH (20:37)
[2021-08-11] MEDS: salt irrigation nasal spray 45 ML SPRAY NS PRN (20:38)
[2021-08-12] MEDS: cefepime 1GM in D5W 50mL 50 ML IV SCH ×3 (00:16→16:17)
[2021-08-12 02:00] VITALS: BP 126/61
[2021-08-12 07:00] VITALS: BP 148/75
[2021-08-12] MEDS: lactobacillus rhamnosus 10,000 MMU CELLS/CAPSULE PO SCH ×2 (07:34→19:11)
[2021-08-12] MEDS: metoprolol tartrate 12.5mg (1/2 tablet) PO SCH ×2 (07:35→19:11)
[2021-08-12] MEDS: amLODIPine 5mg tablet PO SCH (07:36)
[2021-08-12] MEDS: potassium Cl 20 mEq SR tablet PO SCH ×2 (07:36→19:13)
[2021-08-12] MEDS: docusate sod 100mg capsule PO SCH ×2 (07:36→19:11)
[2021-08-12 07:37] LABS: BASOPHILS % (AUTO) 0.5 % (0-1); EOSINOPHILS # (AUTO) 0.2 X10'3 (0-0.9); EOSINOPHILS % (AUTO) 2.4 % (0-6); HEMATOCRIT 44.4 % (42.0-52.0); HEMOGLOBIN 15.1 g/dl (14.0-17.9); LYMPHOCYTES # (AUTO) 0.7 X10'3 (1.1-4.8); LYMPHOCYTES % (AUTO) 7.7 % (21-51); MEAN CORPUSCULAR HEMOGLOBIN 29.7 PG (27.0-31.0); MEAN CORPUSCULAR HGB CONC 34.1 g/dL (33.0-36.5); MEAN CORPUSCULAR VOLUME 87.1 FL (78-98); MEAN PLATELET VOLUME 8.7 FL (7.4-10.4); MONOCYTES # (AUTO) 0.9 X10'3 (0-0.9); MONOCYTES % (AUTO) 9.9 % (2-12); NEUTROPHILS # (AUTO) 7.5 X10'3 (1.8-7.7); NEUTROPHILS % (AUTO) 79.5 % (42-75); PLATELET COUNT 147 X10'3 (140-440); RED CELL DISTRIBUTION WIDTH 13.5 % (11.5-14.5); WHITE BLOOD COUNT 9.4 X10'3 (4.5-11.0)
[2021-08-12] MEDS: enoxaparin 40mg/0.4ml syringe SUBCUT SCH ×2 (07:37→19:10)
[2021-08-12 07:52] LABS: ANION GAP 7 (8-16); CHLORIDE 108 MMOL/L (99-107); GLUCOSE 106 MG/DL (70-104); SODIUM 144 MMOL/L (135-145); TOTAL CARBON DIOXIDE 29.5 MMOL/L (24-32)
[2021-08-12 07:53] LABS: ALBUMIN 2.2 G/DL (3.4-5.0); BLOOD UREA NITROGEN 29 MG/DL (7-18); BUN/CREATININE RATIO 29.6 (5.4-32.0); CALCIUM 7.9 MG/DL (8.5-10.1); CREATININE 0.98 MG/DL (0.60-1.10); eGFR 74 ML/MIN
[2021-08-12] MEDS: VILANTEROL IH SCH (08:00)
[2021-08-12] MEDS: lactose-reduced food (Ensure Enlive) - 237ml bottle PO SCH ×3 (08:00→18:00)
[2021-08-12] MEDS: FLUTICASONE IH SCH (08:00)
[2021-08-12] MEDS: oxymetazoline 15 ML nasal spray NS SCH ×2 (08:00→19:16)
[2021-08-12] MEDS: magnesium Cl slow-release 64mg tablet PO SCH ×2 (08:00→19:15)
[2021-08-12] MEDS: albuterol 2.5 MG/3 ML nebule NEB SCH ×5 (08:16→23:00)
[2021-08-12] MEDS ORDERED: LOP12.5T PO (08:49)
[2021-08-12] MEDS ORDERED: HYDR-3964 PO (08:49)
[2021-08-12] MEDS ORDERED: DOCU100C40 PO (08:49)
[2021-08-12] MEDS ORDERED: AZIT500T PO (09:15)
[2021-08-12 11:00] VITALS: BP 109/69
[2021-08-12 15:00] VITALS: BP 133/75
[2021-08-12 18:00] VITALS: BP 123/68
[2021-08-12] MEDS: salt irrigation nasal spray 45 ML SPRAY NS PRN (19:13)
[2021-08-12 22:00] VITALS: BP 118/69
[2021-08-13] MEDS: cefepime 1GM in D5W 50mL 50 ML IV SCH ×2 (00:18→07:34)
[2021-08-13 02:00] VITALS: BP 129/77
[2021-08-13] MEDS: albuterol 2.5 MG/3 ML nebule NEB SCH ×2 (02:16→07:00)
[2021-08-13 06:00] VITALS: BP 139/79
[2021-08-13 06:45] LABS: BASOPHILS % (AUTO) 0.3 % (0-1); EOSINOPHILS # (AUTO) 0.2 X10'3 (0-0.9); HEMATOCRIT 41.6 % (42.0-52.0); HEMOGLOBIN 14.2 g/dl (14.0-17.9); LYMPHOCYTES # (AUTO) 0.7 X10'3 (1.1-4.8); MEAN CORPUSCULAR HEMOGLOBIN 29.6 PG (27.0-31.0); MEAN CORPUSCULAR HGB CONC 34.1 g/dL (33.0-36.5); MEAN CORPUSCULAR VOLUME 86.9 FL (78-98); MEAN PLATELET VOLUME 8.6 FL (7.4-10.4); MONOCYTES # (AUTO) 0.7 X10'3 (0-0.9); MONOCYTES % (AUTO) 9.1 % (2-12); NEUTROPHILS # (AUTO) 6.5 X10'3 (1.8-7.7); NEUTROPHILS % (AUTO) 79.6 % (42-75); PLATELET COUNT 148 X10'3 (140-440); RED BLOOD COUNT 4.79 X10'6 (4.70-6.10); RED CELL DISTRIBUTION WIDTH 13.5 % (11.5-14.5); WHITE BLOOD COUNT 8.1 X10'3 (4.5-11.0)
[2021-08-13 06:57] LABS: ANION GAP 10 (8-16); BLOOD UREA NITROGEN 22 MG/DL (7-18); BUN/CREATININE RATIO 22.2 (5.4-32.0); CALCIUM 7.9 MG/DL (8.5-10.1); CHLORIDE 105 MMOL/L (99-107); CREATININE 0.99 MG/DL (0.60-1.10); GLUCOSE 115 MG/DL (70-104); POTASSIUM 3.8 MMOL/L (3.5-5.1); SODIUM 139 MMOL/L (135-145); eGFR 73 ML/MIN
[2021-08-13] MEDS: metoprolol tartrate 12.5mg (1/2 tablet) PO SCH (07:34)
[2021-08-13] MEDS: magnesium Cl slow-release 64mg tablet PO SCH (07:34)
[2021-08-13] MEDS: enoxaparin 40mg/0.4ml syringe SUBCUT SCH (07:34)
[2021-08-13 07:35] VITALS: BP_SYST 139
[2021-08-13] MEDS: lactobacillus rhamnosus 10,000 MMU CELLS/CAPSULE PO SCH (07:35)
[2021-08-13] MEDS: docusate sod 100mg capsule PO SCH (07:35)
[2021-08-13] MEDS: potassium Cl 20 mEq SR tablet PO SCH ×3 (07:35→11:22)
[2021-08-13] MEDS: amLODIPine 5mg tablet PO SCH (07:35)
[2021-08-13] MEDS: salt irrigation nasal spray 45 ML SPRAY NS PRN (07:36)
[2021-08-13] MEDS: lactose-reduced food (Ensure Enlive) - 237ml bottle PO SCH ×2 (08:00→13:00)
[2021-08-13] MEDS: CALCIUM GLUC 1gm/50ml NACL,iso 50 ML IV SCH ×2 (09:33→10:15)
--- NOTE | 2021-08-13 12:42 | NUR ---
Reassessment: Pt has been advanced to a regular diet and overall eating fairly well with average 50% PO intake of meals and 81% of four most resent ONS. Pt receiving Glucerna as substitution for Ensure Enlive given product shortage. LBM 08/10, receiving routine bowel care. No further nutrition intervention implemented at this time. Will continue to follow and make recommendations as appropriate. Recommendations: 1) Continue regular diet 2) Ensure Enlive TIDWM; okay to substitute with Glucerna given product shortage 3) Routine bowel care 4) Weekly scaled weights Addendum: 08/13/21 at [address] Amended: Links added.
--- NOTE | 2021-08-13 16:16 | NUR ---
patient is discharged home with a family member on a private car . patient was escorted off the unit by a staff member. patient was alert and oriented x 4 with stable vital signs. patient was on oxygen 2L . patient's PIV on right upper arm discontinued with catheter tip intact. discharge instruction was given to the patient . patient mention when to see a doctor , described reportable symptoms. prescription was sent to patient's preferred pharmacy electronically.
== END 2021-08-13 15:20 | disposition home health service (06) | DRG 163 ==
LOC: ER 16:28 → ED HOLD 20:26 → ORTHO 4S 22:10 → ICU 2S 08-09 20:05 → PCU 3S 08-11 12:31
PROVIDERS: ADMIT Internal Medicine; ATTEND Internal Medicine
PROC: XW033E5 Introduction of Remdesivir Anti-infective into Peripheral Vein, Percutaneous Approach, New Technology Group 5 (ICD-10-PCS; 2021-07-28)
PROC: 0W9930Z Drainage of Right Pleural Cavity with Drainage Device, Percutaneous Approach (ICD-10-PCS; 2021-07-28)
PROC: 5A0955A Assistance with Respiratory Ventilation, Greater than 96 Consecutive Hours, High Flow/Velocity Cannula (ICD-10-PCS; 2021-07-29)
PROC: BW241ZZ Computerized Tomography (CT Scan) of Chest and Abdomen using Low Osmolar Contrast (ICD-10-PCS; 2021-08-07)
PROC: 0B5N4ZZ Destruction of Right Pleura, Percutaneous Endoscopic Approach (ICD-10-PCS; 2021-08-09)
PROC: 0W9940Z Drainage of Right Pleural Cavity with Drainage Device, Percutaneous Endoscopic Approach (ICD-10-PCS; 2021-08-09)
PROC: 03HY32Z Insertion of Monitoring Device into Upper Artery, Percutaneous Approach (ICD-10-PCS; 2021-08-09)
PROC: 02HV33Z Insertion of Infusion Device into Superior Vena Cava, Percutaneous Approach (ICD-10-PCS; 2021-08-09)
PROC: B548ZZA Ultrasonography of Superior Vena Cava, Guidance (ICD-10-PCS; 2021-08-09)
PROC: 0BBF4ZZ Excision of Right Lower Lung Lobe, Percutaneous Endoscopic Approach (ICD-10-PCS; principal; 2021-08-09 15:40)
DX: U07.1 COVID-19 (principal); J12.82 Pneumonia due to coronavirus disease 2019; J96.01 Acute respiratory failure with hypoxia; I26.99 Other pulmonary embolism without acute cor pulmonale; J90 Pleural effusion, not elsewhere classified; J93.83 Other pneumothorax; N40.0 Benign prostatic hyperplasia without lower urinary tract symptoms; I25.10 Atherosclerotic heart disease of native coronary artery without angina pectoris; I12.9 Hypertensive chronic kidney disease with stage 1 through stage 4 chronic kidney disease, or unspecified chronic kidney disease; R77.8 Other specified abnormalities of plasma proteins; N18.9 Chronic kidney disease, unspecified; Z90.49 Acquired absence of other specified parts of digestive tract; Z87.891 Personal history of nicotine dependence; Z86.711 Personal history of pulmonary embolism; Z79.01 Long term (current) use of anticoagulants; Z86.718 Personal history of other venous thrombosis and embolism; Z95.1 Presence of aortocoronary bypass graft; Z88.5 Allergy status to narcotic agent; Z79.899 Other long term (current) drug therapy; J43.9 Emphysema, unspecified
CPT/HCPCS: 32551; 36415; 36600; 71045; 71046; 71250; 80048; 80053; 82803; 82948; 83615; 83735; 83880; 84145; 84478; 84484; 85018; 85025; 85379; 85610; 85730; 86140; 86885; 86900; 86901; 87070; 87081; 88307; 93005; 94002; 94003; 94640; 94760; 97110; 97116; 97161; 97530; 99291; A4215; A4618; A6222; A6449; A7000; A7048; C9250; G0378; J0456; J0690; J0692; J0696; J1100; J1650; J2250; J2405; J2704; J3010; J3490; J7060; J8540; P9045; Q9967

== ENCOUNTER → 2021-08-30 | Outpatient (CLI) | payer MEDICARE, OTHER ==
[~2021-08-30] MED LIST changes: +DOCU100C40 PO; +HYDR-3964 PO; +LOP12.5T PO; -SILO8CAP2 PO; -TALC 4 GM VIAL ***intrapleural administration only IX ONE; -sterile Talc 2 GM powder vial ONE
== END | disposition home or self-care (01) ==
LOC: RAD 10:58
PROVIDERS: ATTEND Thoracic Surgery (Cardiothoracic Vascular Surgery)
DX: R07.9 Chest pain, unspecified (principal); Z95.1 Presence of aortocoronary bypass graft
CPT/HCPCS: 71046

== ENCOUNTER 2024-09-02 10:25 | Day surgery (SDC) | payer MEDICARE, OTHER ==
[2024-08-29 11:08] LABS: BASOPHILS # (AUTO) 0.1 X10'3 (0-0.2); BASOPHILS % (AUTO) 0.6 % (0-1); EOSINOPHILS # (AUTO) 0.3 X10'3 (0-0.9); HEMOGLOBIN 16.3 g/dl (14.0-17.9); LYMPHOCYTES # (AUTO) 0.9 X10'3 (1.1-4.8); LYMPHOCYTES % (AUTO) 10.6 % (21-51); MEAN CORPUSCULAR HEMOGLOBIN 30.3 PG (27.0-31.0); MEAN CORPUSCULAR VOLUME 89.2 FL (78-98); MEAN PLATELET VOLUME 7.2 FL (7.4-10.4); MONOCYTES # (AUTO) 0.5 X10'3 (0-0.9); MONOCYTES % (AUTO) 5.8 % (2-12); NEUTROPHILS # (AUTO) 6.8 X10'3 (1.8-7.7); PLATELET COUNT 237 X10'3 (140-440); RED BLOOD COUNT 5.38 X10'6 (4.70-6.10); RED CELL DISTRIBUTION WIDTH 13.2 % (11.5-14.5); WHITE BLOOD COUNT 8.5 X10'3 (4.5-11.0)
[2024-08-29 11:23] LABS: APTT 26 SECONDS (22-32); PROTHROMBIN TIME 10.7 SECONDS (9.0-12.0)
[2024-08-29 11:34] LABS: ANION GAP 7 (8-16); BLOOD UREA NITROGEN 20 MG/DL (7-18); BUN/CREATININE RATIO 13.8 (10.0-20.0); CALCIUM 9.3 MG/DL (8.5-10.1); CHLORIDE 106 MMOL/L (99-107); CHOL/HDL RATIO 2.2 (0.00-4.99); CHOLESTEROL 137 MG/DL (0-200); CREATININE 1.45 MG/DL (0.60-1.10); GLUCOSE 109 MG/DL (70-104); HDL CHOLESTEROL 62 MG/DL (35-60); LDL CHOLESTEROL 65 MG/DL (50-100); POTASSIUM 4.2 MMOL/L (3.5-5.1); SODIUM 143 MMOL/L (135-145); TOTAL CARBON DIOXIDE 30.5 MMOL/L (24-32); TRIGLYCERIDES 69 MG/DL (20-135); eGFR 47 ML/MIN
[~2024-09-02] VITALS: Ht 180.3 cm; Wt 89.9 kg
[2024-09-02] VITALS (9 sets, daily range): BP systolic 103–144; BP diastolic 67–99; PULSE 71–114; RESP 14–22; TEMP 98.1; O2SAT 93–96
[2024-09-02] MEDS ORDERED: LIDOcaine 1% (10mg/ml) 2ml vial ONE (11:45)
[2024-09-02] MEDS ORDERED: heparin 1,000unit/ml 10ml vial 10 ML ONE ×2 (11:46→13:36)
[2024-09-02] MEDS ORDERED: fentaNYL/PF 50MCG/1 ML 2ML syringe ONE (11:46)
[2024-09-02] MEDS ORDERED: verapamil 2.5 mg/ml inj IV ONE (11:46)
[2024-09-02] MEDS ORDERED: iohexol 350MG/ML 100ml bottle IV ONE ×3 (11:46→13:42)
[2024-09-02] MEDS ORDERED: midazolam 1 mg/ML 2ml injection ONE (11:46)
[2024-09-02] MEDS ORDERED: nitroGLYCERIN 500mcg/5mL D5W 5 ML IV ONE (11:50)
[2024-09-02] MEDS ORDERED: LISI5TAB22 PO (11:56)
[2024-09-02] MEDS ORDERED: HYDR-3972 PO (11:56)
[2024-09-02] MEDS ORDERED: CHOL500044 PO (11:56)
[2024-09-02] MEDS ORDERED: ROSU40TA PO (11:56)
[2024-09-02] MEDS ORDERED: OXCA300T16 PO (11:56)
[2024-09-02] MEDS: diphenhydrAMINE 25mg capsule PO PRN (12:15)
[2024-09-02] MEDS: LORazepam 0.5 MG tablet PO PRN (12:16)
[2024-09-02] MEDS: normal saline 1,000 ML IV SCH (12:16)
[2024-09-02] MEDS ORDERED: LIDOcaine 1% 30ml preserv. free vial ONE (13:09)
[2024-09-02] MEDS ORDERED: clopidogrel 300mg tablet ONE (13:36)
[2024-09-02] MEDS ORDERED: aspirin 325mg tablet ONE (13:36)
[2024-09-02] MEDS ORDERED: HYDROcodone/acetaminophen 10/325mg tab PO PRN (14:35)
[2024-09-02] MEDS ORDERED: HYDROcodone/acetaminophen 5mg/325mg tablet PO PRN (14:35)
[2024-09-02] MEDS ORDERED: CLOP75TA34 PO ×2 (14:45→14:50)
[2024-09-02] MEDS ORDERED: ASPI-1265 PO ×2 (14:45→14:50)
== END 2024-09-02 16:30 | disposition home or self-care (01) ==
LOC: SSTAY O 10:25
PROVIDERS: ATTEND Internal Medicine Interventional Cardiology
DX: R94.39 Abnormal result of other cardiovascular function study (principal); I25.10 Atherosclerotic heart disease of native coronary artery without angina pectoris; I25.810 Atherosclerosis of coronary artery bypass graft(s) without angina pectoris; I10 Essential (primary) hypertension; E78.00 Pure hypercholesterolemia, unspecified; I48.91 Unspecified atrial fibrillation; J44.89 Other specified chronic obstructive pulmonary disease; Z86.711 Personal history of pulmonary embolism; Z79.01 Long term (current) use of anticoagulants; Z79.891 Long term (current) use of opiate analgesic; Z79.899 Other long term (current) drug therapy; Z88.5 Allergy status to narcotic agent
CPT/HCPCS: 36415; 80048; 80061; 85025; 85610; 85730; 93005; 93459; 99152; 99153; A6258; C1725; C1751; C1769; C1874; C1894; C9600; J1644; J2003; J2250; J3010; J3490; J7030; Q0163; Q9967; Z7610